=== PATIENT | female | born 1940 | race Caucasian/White ===

== ENCOUNTER 2016-10-05 19:49 | Inpatient (IN) | payer OTHER, MEDICAID ==
[~2016-10-05] VITALS: Ht 167.6 cm; Wt 70.0 kg
[~2016-10-05 19:49] MED LIST: ALBU1AER INH; CLON.1 PO; DUONSOL2 NEB; LISI-366 PO; MACR100C PO; SIMV80TA PO; SPIRCAP INH; Z.0.OXYGEN INH
[2016-10-05] MEDS ORDERED: SODIUM CHLOR 0.9% 1000 ML INJ 1,000 ML IV ONE (19:58)
[2016-10-05 19:59] VITALS: BP 140/93; PULSE 98; RESP 22; TEMP 98.4; O2SAT 93
[2016-10-05] MEDS ORDERED: NAME5TAB2 PO (20:14)
[2016-10-05] MEDS ORDERED: FURO1TAB62 PO (20:14)
[2016-10-05] MEDS ORDERED: LISI40TA PO (20:14)
[2016-10-05 20:29] LABS: APTT (PATIENT) 23.6 SEC (24.3-30.1); INTERNATIONAL NORMALIZED RATIO 1.1 RATIO; PROTHROMBIN TIME - PATIENT 12.2 SEC (9.8-11.6)
[2016-10-05 20:42] LABS: BICARBONATE 32.4 MEQ/L (21.0-32.0); MAGNESIUM 2.1 MG/DL (1.5-2.5); POTASSIUM 3.3 MEQ/L (3.5-5.1)
--- NOTE | 2016-10-05 20:53 | RADRPT ---
EXAM DATE/TIME: 10/05/2016 20:23 [facility] COMPARISON: CHEST SINGLE AP, December 31, 2013, 3:37. INDICATIONS : Shortness of breath. MEDICAL HISTORY : Hypertension. Chronic obstructive pulmonary disease. Emphysema. SURGICAL HISTORY : None. ENCOUNTER: Initial ACUITY: 2 days PAIN SCORE: 0/10 LOCATION: Bilateral chest FINDINGS: Patchy airspace consolidation seen on the right, mainly perihilar. There is bilateral hilar fullness. No pleural effusion seen. No pneumothorax. Heart size stable compared to normal limits. Thoracic aorta is tortuous. CONCLUSION: 1. Patchy air space consolidation on the right. 2. Bilateral hilar fullness. Lymph adenopathy and/or mass not excludable. Nonemergent CT of the chest , preferably with intravenous contrast, recommended. Mehran Nicolas MD on October 05, 2016 at 20:50 Board Certified Radiologist. This report was verified electronically.
--- NOTE | 2016-10-05 20:54 | PD ---
HPI Chief Complaint: Pain: Acute or Chronic Time Seen by Provider: 20:50 Travel History International Travel<30 days: No Contact w/Intl Traveler<30days: No Traveled to known affect area: No History of Present Illness HPI 75-year-old female that presents to the ED via [facility] for evaluation of fall. Patient apparently had a fall today at home. Patient apparently fell and possibly hit her head. Patient has a chronic wound to her left leg and she is complaining of this. As well as pain in the left leg. She denies any chest pain or arm pain or back pain but she still state having some shortness of breath which per patient is chronic. She does have a history of COPD. She has light to hydrocodone and morphine as well as penicillin. She states been compliant with her medications. She denies any urinary or bowel movement issues. She states that she is concerned about the swelling in her left leg. Per family she's had this swelling on and off for many years. She denies any actual trauma to this leg but per family. She had 2 falls in the past week. She does have a history of dementia so history is somewhat limited from the patient. There are U back patient was found to have hypertension as well as hyperglycemia with a sugar in the 350s. Patient denies any history of diabetes on herself and there is no medical records that she has had diabetes. She takes no diabetic medications. States having chills and sweats but no fever. PFSH Past Medical History Arthritis: Yes Asthma: Yes Blood Disorders: No Anxiety: No Depression: No Heart Rhythm Problems: No Cardiovascular Problems: Yes High Cholesterol: Yes Chemotherapy: No Chest Pain: No Congestive Heart Failure: No COPD: Yes Cerebrovascular Accident: Yes (TIA) Diabetes: No Diminished Hearing: No Deep Vein Thrombosis: Yes Endocrine: No Gastrointestinal Disorders: Yes Genitourinary: No Hypertension: Yes Immune Disorder: No Musculoskeletal: No Neurologic: Yes Psychiatric: No Reproductive: No Respiratory: Yes (COPD/EMPHYSEMA) Immunizations Current: No Radiation Therapy: No Sleep Apnea: No Thyroid Disease: No PNEUMOCCOCAL Vaccine (Year): 1 ?: Not Menopausal: Yes Tubal Ligation: Yes Past Surgical History Gynecologic Surgery: Yes (TUBES TIED) Other Surgery: Yes (LT VEIN STRIPPING 1985) Social History Alcohol Use: No Tobacco Use: No (quit 15 years ago) Substance Use: No Allergies-Medications (Allergen,Severity, Reaction): Coded Allergies: Penicillin (Verified Allergy, Intermediate, 09/10/15) Hydrocodone (Verified Adverse Reaction, Intermediate, VOMITS, 09/10/15) Morphine (Verified Adverse Reaction, Intermediate, Nausea/Vomiting, ) Reported Meds & Prescriptions Reported Meds & Active Scripts Active Reported Namenda (Memantine) 5 Mg Tab 1 Tab PO DAILY Lasix (Furosemide) 20 Mg Tab 1 Tab PO DAILY Lisinopril 40 Mg Tab 40 Mg PO DAILY Review of Systems Except as stated in HPI: all other systems reviewed are Neg Physical Exam Narrative GENERAL: SKIN: Warm and dry. HEAD: Atraumatic. Normocephalic. EYES: Pupils equal and round. No scleral icterus. No injection or drainage. ENT: No nasal bleeding or discharge. Mucous membranes pink and moist. Tongue is midline. No uvula deviation. NECK: Trachea midline. No JVD. CARDIOVASCULAR: Regular rate and rhythm. No murmurs, S3, S4. RESPIRATORY: No accessory muscle use. Clear to auscultation. Breath sounds equal bilaterally. GASTROINTESTINAL: Abdomen soft, non-tender, nondistended. Hepatic and splenic margins not palpable. MUSCULOSKELETAL: Extremities without clubbing, cyanosis, or edema. No obvious deformities. Full range of motion of the upper and lower extremities bilaterally. Patient does have 1+ pitting edema on the left foot compared to the right. Patient has 2+ pulses bilaterally. Patient does have erythema and what appears to be a chronic ulcer to appears to be healing on the medial aspect of the superior aspect of the medial malleolus. No obvious deformity other than the erythema. Warm to touch. NEUROLOGICAL: Awake and alert. No obvious cranial nerve deficits. Motor grossly within normal limits. Five out of 5 muscle strength in the arms and legs. Normal speech. PSYCHIATRIC: Appropriate mood and affect; insight and judgment normal. Data Data Last Documented VS Vital Signs Date Time Temp Pulse Resp B/P Pulse Ox O2 Delivery O2 Flow Rate FiO2 10/05/16 19:59 98.4 98 22 140/93 93 Orders Electrocardiogram (10/05/16 19:56) Complete Blood Count With Diff (10/05/16 19:56) Basic Metabolic Panel (Bmp) (10/05/16 19:56) Troponin I (10/05/16 19:56) Prothrombin Time / Inr (Pt) (10/05/16 19:56) Act Partial Throm Time (Ptt) (10/05/16 19:56) Blood Culture (10/05/16 19:56) Urinalysis - C+S If Indicated (10/05/16 19:56) Magnesium (Mg) (10/05/16 19:56) Chest, Single Ap (10/05/16 19:56) Iv Access Insert/Monitor (10/05/16 19:56) Ecg Monitoring (10/05/16 19:56) Oximetry (10/05/16 19:56) Lactic Acid (10/05/16 19:56) Foot, Complete ([id number]) (10/05/16 ) Ankle, Complete ([id number]) (10/05/16 ) Cath For Specimen (10/05/16 19:58) Sodium Chlor 0.9% 1000 Ml Inj (Ns 1000 M (10/05/16 19:58) Us Leg Venous Doppler (10/05/16 ) Ct Brain W/O Iv Contrast(Rout) (10/05/16 ) Ct Thorax/ Chest W Iv Contrast (10/05/16 ) Urine Culture (10/05/16 21:30) Iohexol 350 Inj (Omnipaque 350 Inj) (10/05/16 22:15) Ceftriaxone Inj (Rocephin Inj) (10/05/16 22:15) Azithromycin Inj (Zithromax Inj) (10/05/16 22:15) Labs Laboratory Tests Test 10/05/16 10/05/16 20:05 21:30 White Blood Count 10.8 TH/MM3 Red Blood Count 4.33 MIL/MM3 Hemoglobin 13.2 GM/DL Hematocrit 39.0 % Mean Corpuscular Volume 90.0 FL Mean Corpuscular Hemoglobin 30.5 PG Mean Corpuscular Hemoglobin 33.9 % Concent Red Cell Distribution Width 14.2 % Platelet Count 125 TH/MM3 Mean Platelet Volume 8.4 FL Neutrophils (%) (Auto) 77.1 % Lymphocytes (%) (Auto) 14.8 % Monocytes (%) (Auto) 7.8 % Eosinophils (%) (Auto) 0.0 % Basophils (%) (Auto) 0.3 % Neutrophils # (Auto) 8.3 TH/MM3 Lymphocytes # (Auto) 1.6 TH/MM3 Monocytes # (Auto) 0.8 TH/MM3 Eosinophils # (Auto) 0.0 TH/MM3 Basophils # (Auto) 0.0 TH/MM3 CBC Comment DIFF FINAL Differential Comment Prothrombin Time 12.2 SEC Prothromb Time International 1.1 RATIO Ratio Activated Partial 23.6 SEC Thromboplast Time Sodium Level 142 MEQ/L Potassium Level 3.3 MEQ/L Chloride Level 104 MEQ/L Carbon Dioxide Level 32.4 MEQ/L Anion Gap 6 MEQ/L Blood Urea Nitrogen 24 MG/DL Creatinine 0.88 MG/DL Estimat Glomerular Filtration 63 ML/MIN Rate Random Glucose 150 MG/DL Lactic Acid Level 2.1 mmol/L Calcium Level 7.9 MG/DL Magnesium Level 2.1 MG/DL Troponin I 0.02 NG/ML Urine Color YELLOW Urine Turbidity HAZY Urine pH 7.0 Urine Specific [place] 1.018 Urine Protein TRACE mg/dL Urine Glucose (UA) 300 mg/dL Urine Ketones NEG mg/dL Urine Occult Blood TRACE Urine Nitrite NEG Urine Bilirubin NEG Urine Urobilinogen 8.0 MG/DL Urine Leukocyte Esterase LARGE Urine RBC 3 /hpf Urine WBC 102 /hpf Urine Bacteria OCC /hpf Microscopic Urinalysis Comment CULTURE INDICATED MDM Medical Decision Making Medical Screen Exam Complete: Yes Emergency Medical Condition: Yes Medical Record Reviewed: Yes Interpretation(s) CBC & BMP Diagram 10/05/16 20:05 lactic 2.1 Injudicious sinus rhythm with no sign of acute ischemia or arrhythmia with no changes from prior. Read by me and attending. Troponin negative. Last Impressions Chest X-Ray 10/05/161955 Signed Impressions: Service Date/Time: September 20:23 - CONCLUSION: 1. Patchy air space consolidation on the right. 2. Bilateral hilar fullness. Lymph adenopathy and/or mass not excludable. Nonemergent CT of the chest, preferably with intravenous contrast, recommended. Mehran Nicolas MD Lower Extremity Ultrasound 10/05/16 0000 Signed Impressions: Service Date/Time: September 20:58 - CONCLUSION: No DVT of the left lower extremity. Mehran Nicolas MD Foot X-Ray 10/05/16 0000 Signed Impressions: Service Date/Time: September 20:26 - CONCLUSION: Soft tissue swelling without perceptible fracture. There is osteopenia and second through fifth hammertoe. Mehran Nicolas MD Ankle X-Ray 10/05/16 0000 Signed Impressions: Service Date/Time: September 20:29 - CONCLUSION: 1. Osteopenia without fracture or subluxation. 2. Diffuse subcutaneous edema. Mehran Nicolas MD UA shows signs of UTI Differential Diagnosis Sepsis versus cellulitis versus hypertension versus hyperglycemia versus COPD versus multiple falls versus head injury versus COPD versus dyspnea Narrative Course 75-year-old female that presents to the ED for evaluation of fall and left leg pain and swelling. Patient was properly examined and was found to have signs and symptoms of unclear etiology. Labs and imaging ordered. Patient was found to be hyperglycemic by EVAC. No history of diabetes. She does appear to have possible cellulitis of the left leg but unsure as patient is somewhat limited with her history. Recommendations for labs and imaging. Patient is agreeable with this. Labs and imaging showed elevated lactic acid, mass on the right lung , UTI. Otherwise unremarkable. Case was discussed in my attending who recommends admission secondary to the upper mental status from the patient as well as the significant infections that she already has. Patient was started on IV azithromycin and ceftriaxone as well as fluids. [facility] Procedures EKG Prior to Arrival: No Sepsis Criteria SIRS Criteria (2 or more): RR > 20 or PaCO2 < 32 Diagnosis Primary Impression: Cellulitis Qualified Code: L03.116 - Cellulitis of left lower extremity Additional Impressions: UTI (urinary tract infection) Qualified Code: N30.00 - Acute cystitis without hematuria Altered mental status Qualified Code: R41.82 - Altered mental status, unspecified altered mental status type COPD (chronic obstructive pulmonary disease) Qualified Code: J42 - Chronic bronchitis, unspecified chronic bronchitis type Admitting Information Admitting Physician Requests: Henrique Davila Oct 05, 2016 20:54
[2016-10-05 20:55] LABS: AUTOMATED NEUTROPHIL # 8.3 TH/MM3 (1.8-7.7); BASOPHIL % 0.3 % (0.0-2.0); HEMO FLAGS DIFF FINAL; LYMPH % 14.8 % (9.0-44.0); LYMPHOCYTE # 1.6 TH/MM3 (1.0-4.8); MEAN CORPUSCULAR HEMOGLOBIN 30.5 PG (27.0-34.0); MEAN CORPUSCULAR HGB CONC 33.9 % (32.0-36.0); MONO % 7.8 % (0.0-8.0); NEUT % 77.1 % (16.0-70.0); PLATELET COUNT 125 TH/MM3 (150-450); RED BLOOD COUNT 4.33 MIL/MM3 (4.00-5.30); RED CELL DISTRIBUTION WIDTH 14.2 % (11.6-17.2); WHITE BLOOD COUNT 10.8 TH/MM3 (4.0-11.0)
--- NOTE | 2016-10-05 20:56 | RADRPT ---
EXAM DATE/TIME: 10/05/2016 20:26 [facility] COMPARISON: No previous studies available for comparison. INDICATIONS : Left foot pain, fall. MEDICAL HISTORY : None. SURGICAL HISTORY : None. ENCOUNTER: Initial ACUITY: 2 days PAIN SCORE: 4/10 LOCATION: Left lateral foot FINDINGS: No fracture or acute subluxation demonstrated. Bones are osteopenic. There is second through fifth duvall mmertoe. There is soft tissue swelling dorsally over the mid foot and proximal forefoot. CONCLUSION: Soft tissue swelling without perceptible fracture. There is osteopenia and second through fifth hamme rtoe. Mehran Nicolas MD on October 05, 2016 at 20:54 Board Certified Radiologist. This report was verified electronically.
--- NOTE | 2016-10-05 20:58 | RADRPT ---
EXAM DATE/TIME: 10/05/2016 20:29 [facility] COMPARISON: No previous studies available for comparison. INDICATIONS : Left ankle pain, fall. MEDICAL HISTORY : None. SURGICAL HISTORY : None. ENCOUNTER: Initial ACUITY: 2 days PAIN SCORE: 8/10 LOCATION: Left lateral ankle FINDINGS: There is fairly generalized subcutaneous edema, perhaps slightly more pronounced medially. Vascular c alcifications are present suggesting chronic venous stasis. No radiopaque foreign body. Bones of the left ankle are osteopenic. No fracture or subluxation demonstrated. No significant arthr opathy seen. CONCLUSION: 1. Osteopenia without fracture or subluxation. 2. Diffuse subcutaneous edema. Mehran Nicolas MD on October 05, 2016 at 20:56 Board Certified Radiologist. This report was verified electronically.
--- NOTE | 2016-10-05 21:40 | RADRPT ---
EXAM DATE/TIME: 10/05/2016 20:58 [facility] COMPARISON: US LEG LEFT VENOUS DOPPLER, April 15, 2010, 13:41. INDICATIONS : Left lower extremity swelling. MEDICAL HISTORY : Hypercholesterolemia. Hypertension. Emphysema. COPD. DVT. TIA. Asthma. Arthritis. SURGICAL HISTORY : Tubal ligation. Left vein stripping. ENCOUNTER: Initial ACUITY: 2 day PAIN SCORE: 0/10 LOCATION: Left leg. TECHNIQUE: Venous ultrasound of the leg was performed from the inguinal ligament to the proximal calf. Real-sujey e, color Doppler and spectral tracing, compression and augmentation techniques were used. FINDINGS: There is normal compressibility of the deep venous system from the inguinal region to the proximal ca lf. No echogenic clot is seen in the lumen of the common femoral, femoral, popliteal, and posterior tibial veins. There is a normal response of the venous system to proximal and distal augmentation an d respiration. CONCLUSION: No DVT of the left lower extremity. Mehran Nicolas MD on October 05, 2016 at 21:38 Board Certified Radiologist. This report was verified electronically.
[2016-10-05 22:03] LABS: BACTERIA, URINE OCC /hpf; BLOOD, URINE TRACE (NEG); COMMENT (UR) CULTURE INDICATED; CULTURE IF INDICATED CULTURE INDICATED; GLUCOSE,URINE 300 mg/dL (NEG); KETONE, URINE NEG (NEG); NITRITE,URINE NEG (NEG); URINE COLOR YELLOW (YELLW/STRAW)
[2016-10-05] MEDS ORDERED: IOHEXOL 350 MG/ML 10 ML VIAL (for RAD DIAG) IV ONE (22:15)
[2016-10-05] MEDS ORDERED: AZITHROMYCIN INJ 500 MG in SODIUM CHLOR 0.9% 250 ML INJ 250 ML IV ONE (22:15)
[2016-10-05] MEDS ORDERED: cefTRIAXone INJ 1,000 MG in SODIUM CHLORIDE 0.9% INJ 100 ML IV ONE (22:15)
--- NOTE | 2016-10-05 22:28 | RADRPT ---
EXAM DATE/TIME: 10/05/2016 21:57 [facility] COMPARISON: No previous studies available for comparison. INDICATIONS : Trauma, fall. RADIATION DOSE: 69.15 CTDIvol (mGy) MEDICAL HISTORY : Cerebrovascular disease. Hypertension. SURGICAL HISTORY : None. ENCOUNTER: Initial ACUITY: 1 day PAIN SCALE: 0/10 LOCATION: cranial TECHNIQUE: Multiple contiguous axial images were obtained of the head. Using automated exposure control and adj ustment of the mA and/or kV according to patient size, radiation dose was kept as low as reasonably a chievable to obtain optimal diagnostic quality images. FINDINGS: CEREBRUM: The ventricles are normal for age. No evidence of midline shift, mass lesion, hemorrhage or acute in farction. No extra-axial fluid collections are seen. There is chronic low-attenuation in the periven tricular white matter. POSTERIOR FOSSA: The cerebellum and brainstem are intact. The 4th ventricle is midline. The cerebellopontine angle i s unremarkable. EXTRACRANIAL: The visualized portion of the orbits is intact. SKULL: The calvaria is intact. No evidence of skull fracture. CONCLUSION: No bleed or other acute intracranial abnormality. Chronic white matter changes. Mehran Nicolas MD on October 05, 2016 at 22:26 Board Certified Radiologist. This report was verified electronically.
--- NOTE | 2016-10-05 22:35 | RADRPT ---
EXAM DATE/TIME: 10/05/2016 22:04 [facility] COMPARISON: CHEST SINGLE AP, October 05, 2016, 20:23. INDICATIONS : Abnormal chest radiograph. Evaluate mass IV CONTRAST: 55 cc Omnipaque 350 (iohexol) IV RADIATION DOSE: 5.28 CTDIvol (mGy) MEDICAL HISTORY : Emphysema. Hypertension. Chronic obstructive pulmonary disease. SURGICAL HISTORY : None. ENCOUNTER: Initial ACUITY: 1 day PAIN SCALE: 0/10 LOCATION: chest TECHNIQUE: Volumetric scanning of the chest was performed. Using automated exposure control and adjustment of t he mA and/or kV according to patient size, radiation dose was kept as low as reasonably achievable to obtain optimal diagnostic quality images. FINDINGS: There areas of non-masslike parenchymal consolidation focally in both infrahilar regions. These are p resumably infectious or inflammatory. I don't see an endobronchial lesion. An 11 mm nodule is seen in the right lower lobe, series 3 a 3 image 25. There is moderate to severe emphysema. Mild atelectasis and/or scarring seen in the lung bases. No pleural effusion. No pneumothorax. No mediastinal, hilar or axillary lymphadenopathy. Heart size within normal limits. There is cor onary artery calcification noted. The upper abdomen is only partly included on this study. There is an ill-defined low-density les ion in the left hepatic lobe and measures at least 3.3 x 4.0 cm in size.CONCLUSION: 1. Localized areas of paramediastinal consolidation of the middle lobe on the right and lingula on th e left most likely infectious or inflammatory versus atelectasis. I don't see any measurable mass in either of these areas but there is an 11 mm nodule in the right upper lobe. Followup noncontrast ches t CT recommended in no longer than 3 months. 2. There is an indeterminate low density mass partially seen in the liver. It is not convincing for a cyst or other benign structure. A nonemergent MRI of the abdomen with and without contrast is recomm ended. 3. Emphysema and coronary artery calcification. Mehran Nicolas MD on October 05, 2016 at 22:27 Board Certified Radiologist. This report was verified electronically.
[2016-10-05 22:58] VITALS: BP 170/79; PULSE 94; RESP 18; O2SAT 94
[2016-10-05] MEDS ORDERED: ONDANSETRON HCL 4 MG/2 ML VIAL IVP PRN (23:15)
[2016-10-05] MEDS ORDERED: NALOXONE HCL 0.4 MG/ML AMP IV PRN (23:15)
[2016-10-05] MEDS ORDERED: SODIUM CHLORIDE 0.9% FLUSH 5 ML FLUSH FLUSH PRN (23:15)
[2016-10-05] MEDS: HEPARIN SODIUM - SQ 10,000 UNITS/ML VIAL SQ SCH (23:16)
[2016-10-06] VITALS (9 sets, daily range): BP systolic 125–158; BP diastolic 63–76; PULSE 69–105; RESP 16–22; TEMP 97.9–99.2; O2SAT 93–98
[2016-10-06] MEDS: SODIUM CHLOR 0.9% 1000 ML INJ 1,000 ML IV SCH ×2 (00:13→22:07)
[2016-10-06] MEDS: RESP: ALBUTEROL 2.5 MG/IPRATROPIUM 0.5 MG NEB (PRN) NEB ×2 (03:39→10:50)
[2016-10-06 03:50] LABS: AUTOMATED NEUTROPHIL # 6.7 TH/MM3 (1.8-7.7); BASOPHIL % 0.1 % (0.0-2.0); HEMO FLAGS DIFF FINAL; LYMPH % 22.4 % (9.0-44.0); LYMPHOCYTE # 2.2 TH/MM3 (1.0-4.8); MEAN CELL VOLUME 89.9 FL (80.0-100.0); MEAN CORPUSCULAR HEMOGLOBIN 30.2 PG (27.0-34.0); MEAN CORPUSCULAR HGB CONC 33.6 % (32.0-36.0); MONO % 8.2 % (0.0-8.0); NEUT % 69.3 % (16.0-70.0); PLATELET COUNT 118 TH/MM3 (150-450); RED BLOOD COUNT 4.11 MIL/MM3 (4.00-5.30); RED CELL DISTRIBUTION WIDTH 14.4 % (11.6-17.2); WHITE BLOOD COUNT 9.7 TH/MM3 (4.0-11.0)
[2016-10-06 04:13] LABS: BICARBONATE 31.7 MEQ/L (21.0-32.0); POTASSIUM 3.7 MEQ/L (3.5-5.1)
[2016-10-06] MEDS ORDERED: INFLUENZA VIRUS VACCINE (QUADRIVALENT) 0.5 ML SYR IM ONE (09:00)
[2016-10-06] MEDS ORDERED: PNEUMOCOCCAL POLYVALENT INJ 25 MCG/0.5 ML SYR IM ONE (09:00)
[2016-10-06] MEDS: SODIUM CHLORIDE 0.9% FLUSH 5 ML FLUSH FLUSH SCH ×2 (09:00→21:00)
[2016-10-06] MEDS ORDERED: hydrALAZINE HCL 20 MG/ML VIAL IV PRN (10:30)
[2016-10-06] MEDS ORDERED: MAGNESIUM HYDROXIDE SUSP 30 ML CUP PO PRN (10:30)
[2016-10-06] MEDS ORDERED: cloNIDine HCL 0.1 MG TAB PO PRN (10:30)
[2016-10-06] MEDS ORDERED: DOCUSATE SODIUM 100 MG CAP PO PRN (10:30)
[2016-10-06] MEDS ORDERED: ALUMINUM/MAGNESIUM/SIMETH 30 ML CUP PO PRN (10:30)
[2016-10-06] MEDS ORDERED: CALCIUM CARBONATE 500 MG CHEWABLE TAB CHEW PRN (10:30)
[2016-10-06] MEDS ORDERED: ENALAPRILAT 1.25 MG/ML VIAL IV PRN (10:30)
[2016-10-06] MEDS ORDERED: DEXTROSE 50% IN WATER 50 ML VIAL(D50) IV PUSH PRN (10:30)
[2016-10-06] MEDS ORDERED: GLUCAGON 1 MG/ML VIAL OTHER PRN (10:30)
[2016-10-06] MEDS ORDERED: DOCUSATE SODIUM 50 MG/SENNA 8.6 MG TAB PO PRN (10:30)
[2016-10-06] MEDS: POTASSIUM CHLORIDE 20 MEQ CONTROLLED RELEASE TAB PO SCH (10:55)
[2016-10-06] MEDS: LISINOPRIL 20 MG TAB PO SCH (10:55)
[2016-10-06] MEDS: FUROSEMIDE 20 MG TAB PO SCH (10:55)
[2016-10-06] MEDS: HEPARIN SODIUM - SQ 10,000 UNITS/ML VIAL SQ SCH ×2 (10:56→22:10)
[2016-10-06] MEDS: INSULIN ASPART SUPPLEMENTAL SCALE SQ SCH ×3 (10:56→22:08)
--- NOTE | 2016-10-06 11:34 | HHI.HP ---
[facility] Rei Alfredo M.D. Admission Diagnosis altered mental status, cellulitis, UTI, lung mass Diagnoses: Chief Complaint: fall, AMS, leg pain Travel History International Travel<30 Days: No Contact w/Intl Traveler <30 Da: No Traveled to Known Affected Are: No Sepsis Criteria SIRS Criteria (2 or more): Heart rate over 90, RR > 20 or PaCO2 < 32 Sepsis Criteria (SIRS+source): Infect source susp/known Severe Sepsis (+one): Lactate >2 Criteria Outcome: Meets severe sepsis criteria History of Present Illness 75-year-old female with history of Dementia, HTN, HLD, TIA, DVT, COPD, arthritis , presents after a fall at home. Patient reports she lives with a roommate, was using her cane at home but states she "didn't have the right position" and just fell to the ground. She reports 2 falls in the past week. She denies any injury or loss of consciousness, although her left leg now feels "sore". She has a chronic wound from a few years ago at the left medial lower extremity, with some surrounding erythema but no drainage. She has been taking ibuprofen as needed for the pain. Upon arrival to the ED, CXR showed possible pneumonia. The patient reports chronic shortness of breath at baseline, improves after breathing treatments, and with occasional cough productive of yellow sputum. Denies fevers or chills. Denies chest pains. Urinalysis also with evidence of UTI. Patient denies dysuria, abdominal/flank pain. The patient has no other medical complaints at this time. Review of Systems Constitutional: DENIES: Diaphoretic episodes, Fever, Chills, Dizziness Endocrine: DENIES: Polydipsia, Polyuria, Polyphagia Eyes: DENIES: Blurred vision, Eye pain, Double Vision Ears, nose, mouth, throat: COMPLAINS OF: Running Nose, DENIES: Throat pain, Ear Pain, Odynophagia Respiratory: COMPLAINS OF: Cough, Wheezing, Sputum production, Shortness of breath Cardiovascular: COMPLAINS OF: Lower Extremity Edema, DENIES: Chest pain, Palpitations, Syncope Gastrointestinal: DENIES: Abdominal pain, Constipation, Diarrhea, Nausea, Vomiting Genitourinary: DENIES: Urinary incontinence, Urgency, Dysuria Musculoskeletal: DENIES: Back pain, Neck pain Integumentary: DENIES: Pruritus, Rash Hematologic/lymphatic: DENIES: Bruising, Lymphadenopathy Immunologic/allergic: DENIES: Eczema, Urticaria Neurologic: DENIES: Abnormal gait, Headache, Localized weakness, Paresthesias Psychiatric: DENIES: Anxiety, Depression Past Family Social History Past Medical History Dementia HTN HLD DVT TIA COPD arthritis Past Surgical History Vein stripping Tubal ligation Reported Medications Namenda (Memantine) 5 Mg Tab 1 Tab PO DAILY Lasix (Furosemide) 20 Mg Tab 1 Tab PO DAILY Lisinopril 40 Mg Tab 40 Mg PO DAILY Allergies: Coded Allergies: Morphine (Verified Adverse Reaction, Intermediate, Nausea/Vomiting, ) Active Ordered Medications Current Medications Medications (Trade) Dose Ordered Sig/Hung Route Start Time Stop Time Status Last Admin (NS 1000 ml Inj) 1,000 ml @ 50 mls/hr Q20H IV 10/05/16 23:03 10/06/16 00:13 (NS Flush) 2 ml UNSCH PRN FLUSH 10/05/16 23:15 (NS Flush) 2 ml BID FLUSH 10/06/16 09:00 10/06/16 09:00 (Tylenol) 650 mg Q4H PRN PO 10/05/16 23:15 (Zofran Inj) 4 mg Q6H PRN IVP 10/05/16 23:15 (Heparin Inj) 5,000 units Q12H SQ 10/05/16 23:15 10/06/16 10:56 Naloxone HCl 0.4 mg 0.4 mg UNSCH PRN IV 10/05/16 23:15 Ceftriaxone Sodium 1000 mg/ Sodium Chloride 100 ml @ 200 mls/hr Q24H IV 10/06/16 22:00 (Zithromax Inj/ NS 250 ml Inj) 250 ml @ 250 mls/hr Q24H IV 10/06/16 23:00 (Colace) 100 mg BID PRN PO 10/06/16 10:30 (Araceli-Colace) 1 tab BID PRN PO 10/06/16 10:30 (Milk Of Magnesia Liq) 30 ml DAILY PRN PO 10/06/16 10:30 (Mag-Al Plus Susp Liq) 30 ml Q6H PRN PO 10/06/16 10:30 (Tums Chew) 1,000 mg TID PRN CHEW 10/06/16 10:30 (D50w (Vial) Inj) 25 ml UNSCH PRN IV PUSH 10/06/16 10:30 (Glucagon Inj) 1 mg UNSCH PRN OTHER 10/06/16 10:30 (Lasix) 20 mg DAILY PO 10/06/16 10:30 10/06/16 10:55 (Prinivil) 40 mg DAILY PO 10/06/16 10:30 10/06/16 10:55 (Namenda) 5 mg DAILY PO 10/07/16 09:00 (Vasotec Inj) 1.25 mg Q6H PRN IV 10/06/16 10:30 (Apresoline Inj) 10 mg Q6H PRN IV 10/06/16 10:30 (Catapres) 0.1 mg Q6H PRN PO 10/06/16 10:30 (KCl) 20 meq DAILY PO 10/06/16 10:30 10/06/16 10:55 Family History Father with stomach cancer, Social History Denies tobacco, alcohol, or illicit drug use. Quit smoking tobacco 15+ years ago. Lives with a roommate Uses a cane for ambulation. Physical Exam Vital Signs Vital Signs Date Time Temp Pulse Resp B/P Pulse Ox O2 Delivery O2 Flow Rate FiO2 10/06/16 07:57 99.2 69 141/69 98 10/06/16 03:34 97.9 71 19 152/76 97 10/06/16 02:12 96 Nasal Cannula 2.00 10/06/16 02:09 79 18 134/74 96 Nasal Cannula 3 10/06/16 00:13 83 16 125/67 93 Nasal Cannula 3 10/05/16 22:58 94 18 170/79 94 Nasal Cannula 3 10/05/16 19:59 98.4 98 22 140/93 93 Physical Exam GENERAL: Well-nourished, well-developed elderly female patient, in no apparent distress. SKIN: No rashes, ecchymoses or lesions. Cool and dry. HEAD: Atraumatic. Normocephalic. No temporal or scalp tenderness. EYES: Pupils equal round and reactive. No scleral icterus. No injection or drainage. ENT: Nose without bleeding, purulent drainage or septal hematoma. Throat without erythema, tonsillar hypertrophy or exudate. Uvula midline. Airway patent. NECK: Trachea midline. Supple, nontender. CARDIOVASCULAR: Regular rate and rhythm without murmurs, gallops, or rubs. RESPIRATORY: Decreased breath sounds, otherwise clear to auscultation. Breath sounds equal bilaterally. No wheezes, rales, or rhonchi. GASTROINTESTINAL: Abdomen soft, non-tender, nondistended. Normoactive bowel sounds. MUSCULOSKELETAL: Extremities without clubbing, cyanosis, or edema. Distal medial left lower extremity with 3cm healing wound. 2+ bilateral lower extremity edema. No CVA tenderness. NEUROLOGICAL: Awake and alert. Cranial nerves II through XII intact. Motor and sensory grossly within normal limits. Moves all extremities spontaneously. Normal speech. Laboratory Laboratory Tests Test 10/05/16 10/05/16 10/06/16 20:05 21:30 03:23 White Blood Count 10.8 9.7 Red Blood Count 4.33 4.11 Hemoglobin 13.2 12.4 Hematocrit 39.0 37.0 Mean Corpuscular Volume 90.0 89.9 Mean Corpuscular Hemoglobin 30.5 30.2 Mean Corpuscular Hemoglobin 33.9 33.6 Concent Red Cell Distribution Width 14.2 14.4 Platelet Count 125 118 Mean Platelet Volume 8.4 8.4 Neutrophils (%) (Auto) 77.1 69.3 Lymphocytes (%) (Auto) 14.8 22.4 Monocytes (%) (Auto) 7.8 8.2 Eosinophils (%) (Auto) 0.0 0.0 Basophils (%) (Auto) 0.3 0.1 Neutrophils # (Auto) 8.3 6.7 Lymphocytes # (Auto) 1.6 2.2 Monocytes # (Auto) 0.8 0.8 Eosinophils # (Auto) 0.0 0.0 Basophils # (Auto) 0.0 0.0 CBC Comment DIFF FINAL DIFF FINAL Differential Comment Prothrombin Time 12.2 Prothromb Time International 1.1 Ratio Activated Partial 23.6 Thromboplast Time Sodium Level 142 145 Potassium Level 3.3 3.7 Chloride Level 104 109 Carbon Dioxide Level 32.4 31.7 Anion Gap 6 4 Blood Urea Nitrogen 24 17 Creatinine 0.88 0.64 Estimat Glomerular Filtration 63 91 Rate Random Glucose 150 126 Lactic Acid Level 2.1 Calcium Level 7.9 8.0 Magnesium Level 2.1 Troponin I 0.02 Urine Color YELLOW Urine Turbidity HAZY Urine pH 7.0 Urine Specific Remus 1.018 Urine Protein TRACE Urine Glucose (UA) 300 Urine Ketones NEG Urine Occult Blood TRACE Urine Nitrite NEG Urine Bilirubin NEG Urine Urobilinogen 8.0 Urine Leukocyte Esterase LARGE Urine RBC 3 Urine WBC 102 Urine Bacteria OCC Microscopic Urinalysis Comment CULTURE INDICATED Date/Time Procedure Status Source Growth 10/05/16 21:30 Urine Culture Received Urine Clean Catch Pending 10/05/16 20:05 Aerobic Blood Culture - Preliminary Resulted Blood Peripheral NO GROWTH IN 1 DAY 10/05/16 20:05 Anaerobic Blood Culture - Preliminary Resulted Blood Peripheral NO GROWTH IN 1 DAY Result Diagram: 10/06/1632210/06/16322 Imaging Last Impressions Chest X-Ray 10/05/161955 Signed Impressions: Service Date/Time: September 20:23 - CONCLUSION: 1. Patchy air space consolidation on the right. 2. Bilateral hilar fullness. Lymph adenopathy and/or mass not excludable. Nonemergent CT of the chest, preferably with intravenous contrast, recommended. Mehran Nicolas MD Lower Extremity Ultrasound 10/05/16 0000 Signed Impressions: Service Date/Time: September 20:58 - CONCLUSION: No DVT of the left lower extremity. Mehran Nicolas MD Head CT 10/05/16 0000 Signed Impressions: Service Date/Time: September 21:57 - CONCLUSION: No bleed or other acute intracranial abnormality. Chronic white matter changes. Mehran Nicolas MD Foot X-Ray 10/05/16 0000 Signed Impressions: Service Date/Time: September 20:26 - CONCLUSION: Soft tissue swelling without perceptible fracture. There is osteopenia and second through fifth hammertoe. Mehran Nicolas MD Chest CT 10/05/16 0000 Signed Impressions: Service Date/Time: September 22:04 - CONCLUSION: 1. Localized areas of paramediastinal consolidation of the middle lobe on the right and lingula on the left most likely infectious or inflammatory versus atelectasis. I don't see any measurable mass in either of these areas but there is an 11 mm nodule in the right upper lobe. Followup noncontrast chest CT recommended in no longer than 3 months. 2. There is an indeterminate low density mass partially seen in the liver. It is not convincing for a cyst or other benign structure. A nonemergent MRI of the abdomen with and without contrast is recommended. 3. Emphysema and coronary artery calcification. Mehran Nicolas MD Ankle X-Ray 10/05/16 0000 Signed Impressions: Service Date/Time: , October 05, 2016 20:29 - CONCLUSION: 1. Osteopenia without fracture or subluxation. 2. Diffuse subcutaneous edema. Mehran Nicolas MD Assessment and Plan Problem List: (1) Severe sepsis ICD Code: A41.9 Status: Acute (2) Community acquired pneumonia ICD Code: J18.9 Status: Acute (3) UTI (urinary tract infection) ICD Code: N39.0 Status: Acute (4) COPD (chronic obstructive pulmonary disease) ICD Code: J44.9 Status: Chronic (5) HTN (hypertension) ICD Code: I10 Status: Chronic Assessment and Plan 75-year-old female with history of Dementia, HTN, HLD, TIA, DVT, COPD, arthritis , presents after a fall at home. Severe Sepsis: tachycardic, tachypneic, lactic acid 2.1 upon arrival. Souce-PNA and UTI. Afebrile, no leukocytosis. Blood cultures with no growth x1day. On IV Abx with Rocephin/Azithro. Continue gentle IVF. Community Acquired Pneumonia: CXR images reviewed by me, shows patchy consolidation at right lung. Chest CT showed localized areas of paramediastinal consolidation of RML and lingula on the left, most likely infectious vs inflammatory. Check urine legionella/pneumococcal antigen and sputum culture. Started on IV Rocephin/Azithro. Mucinex bid. UTI: UA with evidence of UTI. On IV Rocephin as above. Monitor urine culture. Fall: suspect chronic deconditioning worsened by infection as above. Head CT images reviewed by me, no acute findings. Consult PT. Fall precautions. LLE Wound and BLE Edema: chronic. Doppler U/S negative. LLE foot and ankle xray reviewed, showed osteopenia without fracture/subluxation; diffuse subcutaneous edema. Continue patient's Lasix 20mg daily with KCl replacement. COPD: chronic, continue duonebs q12h scheduled and q6h prn. Dementia: Chronic, continue patient's Namenda. HTN/HLD: Chronic, continue patient's lisinopril. Monitor BP, adjust antihypertensives as needed. Clonidine prn. RUL nodule: incidental finding, discussed with the patient, needs outpatient repeat Chest CT in 3 months. Liver Mass: incidental finding on imaging, discussed with the patient, needs nonemergent outpatient MRI. Coronary Calcifications: seen on chest CT, patient informed of the findings. Patient denies recent chest pains. EKG reviewed by me, showed RBBB, no changes when compared to EKG in 2015. Start on aspirin. DVT Prophylaxis: heparin Written by Maylin Jaramillo, acting as scribe for Dr. Pabon on 10/06/16 at 11: 27. The documentation accurately reflects the work performed [id number] by me on at 1127 Code Status Full Code Discussed Condition With Patient, RN Physician Certification 2 Midnight Certification Type: Admission for Inpatient Services Order for Inpatient Services The services are ordered in accordance with Medicare regulations or non- Medicare payer requirements, as applicable. In the case of services not specified as inpatient-only, they are appropriately provided as inpatient services in accordance with the 2-midnight benchmark. Estimated LOS (days): 3 days is the estimated time the patient will need to remain in the hospital, assuming treatment plan goals are met and no additional complications. Post-Hospital Plan: Not yet determined Problem Qualifiers (1) UTI (urinary tract infection): Qualified Code: N30.00 - Acute cystitis without hematuria (2) COPD (chronic obstructive pulmonary disease): Qualified Code: J42 - Chronic bronchitis, unspecified chronic bronchitis type Maylin Jaramillo PA-C Oct 06, 2016 11:34 Maxim Pabon MD Oct 06, 2016 17:03
[2016-10-06 15:47] LABS: HEMOGLOBIN A1a 0.9 %; HEMOGLOBIN A1b 0.9 %; HEMOGLOBIN Ao 85.4 %; HEMOGLOBIN F 0.7 %; HEMOGLOBIN P3 5.5 %
[2016-10-06] MEDS: RESP: ALBUTEROL 2.5 MG/IPRATROPIUM 0.5 MG NEB (SCH) NEB (19:27)
[2016-10-06] MEDS: cefTRIAXone INJ 1,000 MG in SODIUM CHLORIDE 0.9% INJ 100 ML IV SCH (22:08)
[2016-10-06] MEDS: guaiFENesin E.R. 600 MG TAB PO SCH (22:09)
--- NOTE | 2016-10-06 22:47 | EKG ---
Date Performed: 10/05/2016 Time Performed: 20:21:15 PTAGE: 75 years EKG: Sinus rhythm WITH SINUS ARRHYTHMIA POSSIBLE LEFT ATRIAL ENLARGEMENT INDETERMINATE AXIS RIGHT BUNDLE BRANCH BLOCK MODERATE T-WAVE ABNORMALITY, CONSIDER LATERAL ISCHEMIA MODERATE T-WAVE ABNORMALITY, CONSIDER INFERIOR ISCHEMIA ABNORMAL ECG PREVIOUS TRACING : 09/29/2014 10.12 DOCTOR: Belinda Abarca Interpretating Date/Time 10/06/2016 22:43:50
[2016-10-06] MEDS: AZITHROMYCIN INJ 500 MG in SODIUM CHLOR 0.9% 250 ML INJ 250 ML IV SCH (23:58)
[2016-10-07] VITALS (9 sets, daily range): BP systolic 126–175; BP diastolic 65–89; PULSE 70–90; RESP 19–21; TEMP 96–98.1; O2SAT 92–96
[2016-10-07] MEDS: RESP: ALBUTEROL 2.5 MG/IPRATROPIUM 0.5 MG NEB (SCH) NEB ×2 (05:05→20:13)
[2016-10-07] MEDS: INSULIN ASPART SUPPLEMENTAL SCALE SQ SCH ×4 (06:19→20:21)
[2016-10-07 06:55] LABS: BICARBONATE 29.5 MEQ/L (21.0-32.0); MAGNESIUM 2.1 MG/DL (1.5-2.5); POTASSIUM 3.8 MEQ/L (3.5-5.1)
[2016-10-07] MEDS ORDERED: ASPIRIN EC 81 MG TABEC PO SCH (09:00)
[2016-10-07] MEDS: RESP: ALBUTEROL 2.5 MG/IPRATROPIUM 0.5 MG NEB (PRN) NEB ×2 (09:19→12:08)
[2016-10-07] MEDS: guaiFENesin E.R. 600 MG TAB PO SCH ×2 (09:41→20:20)
[2016-10-07] MEDS: MEMANTINE HCL 5 MG TAB PO SCH (09:41)
[2016-10-07] MEDS: ASPIRIN EC 81 MG TABEC PO SCH (09:41)
[2016-10-07] MEDS: SODIUM CHLORIDE 0.9% FLUSH 5 ML FLUSH FLUSH SCH ×2 (09:41→20:20)
[2016-10-07] MEDS: LISINOPRIL 20 MG TAB PO SCH (09:41)
[2016-10-07] MEDS: FUROSEMIDE 20 MG TAB PO SCH (09:41)
[2016-10-07] MEDS: POTASSIUM CHLORIDE 20 MEQ CONTROLLED RELEASE TAB PO SCH (09:41)
--- NOTE | 2016-10-07 10:06 | HHI.PR ---
Subjective Remarks Follow-up for fall, pneumonia, UTI. The patient's been tolerating oral intake. She is a bit short of breath currently after receiving a bath and requesting a breathing treatment. She was sent home with a roommate who is also currently in the hospital. Agreeable for rehabilitation placement. Objective Vitals Vital Signs Date Time Temp Pulse Resp B/P Pulse Ox O2 Delivery O2 Flow Rate FiO2 10/07/16 09:20 96 Nasal Cannula 2.00 10/07/16 07:45 74 20 141/71 93 10/07/16 04:30 98.0 90 21 135/65 92 10/07/16 00:25 98.1 71 19 126/66 96 10/06/16 20:58 98.0 93 19 134/63 94 10/06/16 19:30 96 Nasal Cannula 2.00 10/06/16 15:10 98.5 86 22 131/63 95 10/06/16 12:01 98.8 105 20 158/64 95 Result Diagram: 10/06/16 0323 10/07/16 0540 Imaging Last Impressions Chest X-Ray 10/05/161955 Signed Impressions: Service Date/Time: September 20:23 - CONCLUSION: 1. Patchy air space consolidation on the right. 2. Bilateral hilar fullness. Lymph adenopathy and/or mass not excludable. Nonemergent CT of the chest, preferably with intravenous contrast, recommended. Mehran Nicolas MD Lower Extremity Ultrasound 10/05/16 0000 Signed Impressions: Service Date/Time: September 20:58 - CONCLUSION: No DVT of the left lower extremity. Mehran Nicolas MD Head CT 10/05/16 0000 Signed Impressions: Service Date/Time: September 21:57 - CONCLUSION: No bleed or other acute intracranial abnormality. Chronic white matter changes. Mehran Nicolas MD Foot X-Ray 10/05/16 0000 Signed Impressions: Service Date/Time: September 20:26 - CONCLUSION: Soft tissue swelling without perceptible fracture. There is osteopenia and second through fifth hammertoe. Mehran Nicolas MD Chest CT 10/05/16 0000 Signed Impressions: Service Date/Time: September 22:04 - CONCLUSION: 1. Localized areas of paramediastinal consolidation of the middle lobe on the right and lingula on the left most likely infectious or inflammatory versus atelectasis. I don't see any measurable mass in either of these areas but there is an 11 mm nodule in the right upper lobe. Followup noncontrast chest CT recommended in no longer than 3 months. 2. There is an indeterminate low density mass partially seen in the liver. It is not convincing for a cyst or other benign structure. A nonemergent MRI of the abdomen with and without contrast is recommended. 3. Emphysema and coronary artery calcification. Mehran Nicolas MD Ankle X-Ray 10/05/16 0000 Signed Impressions: Service Date/Time: September 20:29 - CONCLUSION: 1. Osteopenia without fracture or subluxation. 2. Diffuse subcutaneous edema. Mehran Nicolas MD Objective Remarks GENERAL: Well-developed well-nourished. In no acute distress. SKIN: Warm and dry. Left medial ankle with ~3cm superficial ulcer, no erythema or drainage. HEENT: Normocephalic. Pupils equal and round. Mucous membranes pink and moist. CARDIOVASCULAR: Regular rate and rhythm. No murmur appreciated. RESPIRATORY: No accessory muscle use. Clear to auscultation. Breath sounds equal bilaterally. No wheezing. GASTROINTESTINAL: Abdomen soft, non-tender, nondistended. Bowel sounds x4. MUSCULOSKELETAL: Ulcer as above. No clubbing or cyanosis. 1+ edema. NEUROLOGICAL: Awake and alert. No focal neurological deficits. Moves upper and lower extremities spontaneously. Normal speech. PSYCHIATRIC: Appropriate mood and affect; insight and judgment normal. A/P Problem List: (1) Severe sepsis ICD Code: A41.9 Status: Acute (2) Community acquired pneumonia ICD Code: J18.9 Status: Acute (3) UTI (urinary tract infection) ICD Code: N39.0 Status: Acute (4) COPD (chronic obstructive pulmonary disease) ICD Code: J44.9 Status: Chronic (5) HTN (hypertension) ICD Code: I10 Status: Chronic Assessment and Plan 75-year-old female with history of Dementia, HTN, HLD, TIA, DVT, COPD, arthritis , presents after a fall at home. Severe Sepsis: tachycardic, tachypneic, lactic acid 2.1 upon arrival. Souce-PNA and UTI. Afebrile, no leukocytosis. Blood cultures with NGTD. On IV Abx with Rocephin/Azithro, transition to oral at MA. Continue gentle IVF. Improving. Community Acquired Pneumonia: CXR showed patchy consolidation at right lung. Chest CT showed localized areas of paramediastinal consolidation of RML and lingula on the left, most likely infectious vs inflammatory. Ordered urine legionella/pneumococcal antigen and sputum culture. Antibiotics as above. Mucinex bid. O2 as needed, titrate. UTI: UA with evidence of UTI. Urine culture with pansensitive Klebsiella. On antibiotics as above. Fall: suspect chronic deconditioning exacerbated by infection as above. Head CT images with no acute findings. Consulted PT, needs SNF, case management consulted. Fall precautions. LLE Wound and BLE Edema: chronic. Doppler U/S negative. LLE foot and ankle xray showed osteopenia without fracture/subluxation; diffuse subcutaneous edema. No signs of infection on exam. Continue patient's Lasix 20mg daily with KCl replacement. COPD: chronic, does not appear to be in acute exacerbation. Continue duonebs q12h scheduled and q6h prn. Dementia: Chronic, continue patient's Namenda. HTN/HLD: Chronic, continue patient's lisinopril. Monitor BP, adjust antihypertensives as needed. Clonidine prn. RUL nodule: incidental finding, discussed with the patient, needs outpatient repeat Chest CT in 3 months. Liver Mass: incidental finding on imaging, patient made aware, needs nonemergent outpatient MRI. Coronary Calcifications: seen on chest CT, patient informed of the findings. Patient denies recent chest pains. EKG showed RBBB, no changes when compared to EKG in 2015. Started on aspirin. DVT Prophylaxis: heparin Written by Weston Iyer, acting as scribe for Dr. Pabon on 10/07/16 at 10:05. The documentation accurately reflects the work performed [id number] by me on at 1005 Discharge Planning Patient significantly improved overnight. Patient could possibly be discharged to SNF later today versus tomorrow a.m. if she continues to improve. Still SOB even with slight exertion Problem Qualifiers (1) UTI (urinary tract infection): Qualified Code: N30.00 - Acute cystitis without hematuria (2) COPD (chronic obstructive pulmonary disease): Qualified Code: J42 - Chronic bronchitis, unspecified chronic bronchitis type (3) HTN (hypertension): Qualified Code: I10 - Essential hypertension Weston Iyer Oct 07, 2016 10:06 Maxim Pabon MD Oct 07, 2016 13:59
[2016-10-07] MEDS: SODIUM CHLOR 0.9% 1000 ML INJ 1,000 ML IV SCH (13:34)
[2016-10-07] MEDS: HEPARIN SODIUM - SQ 10,000 UNITS/ML VIAL SQ SCH ×2 (13:34→23:12)
[2016-10-07] MEDS: cefTRIAXone INJ 1,000 MG in SODIUM CHLORIDE 0.9% INJ 100 ML IV SCH (21:46)
[2016-10-07] MEDS: AZITHROMYCIN INJ 500 MG in SODIUM CHLOR 0.9% 250 ML INJ 250 ML IV SCH (23:07)
[2016-10-08] MEDS: RESP: ALBUTEROL 2.5 MG/IPRATROPIUM 0.5 MG NEB (PRN) NEB (01:50)
[2016-10-08 04:12] VITALS: BP 139/73; PULSE 73; RESP 20; TEMP 97.5; O2SAT 95
[2016-10-08] MEDS: INSULIN ASPART SUPPLEMENTAL SCALE SQ SCH ×4 (05:28→21:00)
[2016-10-08 07:40] VITALS: O2SAT 94
[2016-10-08] MEDS: RESP: ALBUTEROL 2.5 MG/IPRATROPIUM 0.5 MG NEB (SCH) NEB ×2 (07:40→17:52)
[2016-10-08 08:51] VITALS: BP 170/80; PULSE 78; RESP 18; TEMP 96.9; O2SAT 92
[2016-10-08] MEDS: MEMANTINE HCL 5 MG TAB PO SCH (09:00)
[2016-10-08] MEDS: SODIUM CHLORIDE 0.9% FLUSH 5 ML FLUSH FLUSH SCH ×2 (09:23→21:00)
[2016-10-08] MEDS: LISINOPRIL 20 MG TAB PO SCH (09:25)
[2016-10-08] MEDS ORDERED: CEFT500T3 PO (09:26)
[2016-10-08] MEDS: guaiFENesin E.R. 600 MG TAB PO SCH ×2 (09:26→21:02)
[2016-10-08] MEDS ORDERED: AZIT500T2 PO (09:26)
[2016-10-08] MEDS: POTASSIUM CHLORIDE 20 MEQ CONTROLLED RELEASE TAB PO SCH (09:27)
[2016-10-08] MEDS: FUROSEMIDE 20 MG TAB PO SCH (09:27)
[2016-10-08] MEDS: ASPIRIN EC 81 MG TABEC PO SCH (09:27)
--- NOTE | 2016-10-08 09:27 | HHI.PR ---
Subjective Remarks Follow-up for pneumonia, UTI, fall. The patient is doing well today. She is breathing better today. Chronically on 2 L O2 at home. Eating well. Agreeable for rehabilitation placement. Objective Vitals Vital Signs Date Time Temp Pulse Resp B/P Pulse Ox O2 Delivery O2 Flow Rate FiO2 10/08/16 08:51 96.9 78 18 170/80 92 10/08/16 07:40 94 Nasal Cannula 2.00 10/08/16 04:12 97.5 73 20 139/73 95 10/07/16 23:26 97.6 70 20 146/89 95 10/07/16 20:15 96 Nasal Cannula 3.00 10/07/16 19:45 97.6 77 20 163/81 95 10/07/16 16:00 96.0 84 20 153/71 95 10/07/16 12:00 98.0 79 20 175/89 94 I/O 10/07/16 10/07/16 10/07/16 10/08/16 10/08/16 10/08/16 07:00 15:00 23:00 07:00 15:00 23:00 Intake Total 420 ml Balance 420 ml Intake IV Total 420 ml # Voids 2 Result Diagram: 10/06/16 0323 10/07/16 0540 Imaging Last Impressions Chest X-Ray 10/05/161955 Signed Impressions: Service Date/Time: September 20:23 - CONCLUSION: 1. Patchy air space consolidation on the right. 2. Bilateral hilar fullness. Lymph adenopathy and/or mass not excludable. Nonemergent CT of the chest, preferably with intravenous contrast, recommended. Mehran Nicolas MD Lower Extremity Ultrasound 10/05/16 0000 Signed Impressions: Service Date/Time: September 20:58 - CONCLUSION: No DVT of the left lower extremity. Mehran Nicolas MD Head CT 10/05/16 0000 Signed Impressions: Service Date/Time: September 21:57 - CONCLUSION: No bleed or other acute intracranial abnormality. Chronic white matter changes. Mehran Nicolas MD Foot X-Ray 10/05/16 0000 Signed Impressions: Service Date/Time: September 20:26 - CONCLUSION: Soft tissue swelling without perceptible fracture. There is osteopenia and second through fifth hammertoe. Mehran Nicolas MD Chest CT 10/05/16 0000 Signed Impressions: Service Date/Time: September 22:04 - CONCLUSION: 1. Localized areas of paramediastinal consolidation of the middle lobe on the right and lingula on the left most likely infectious or inflammatory versus atelectasis. I don't see any measurable mass in either of these areas but there is an 11 mm nodule in the right upper lobe. Followup noncontrast chest CT recommended in no longer than 3 months. 2. There is an indeterminate low density mass partially seen in the liver. It is not convincing for a cyst or other benign structure. A nonemergent MRI of the abdomen with and without contrast is recommended. 3. Emphysema and coronary artery calcification. Mehran Nicolas MD Ankle X-Ray 10/05/16 0000 Signed Impressions: Service Date/Time: September 20:29 - CONCLUSION: 1. Osteopenia without fracture or subluxation. 2. Diffuse subcutaneous edema. Mehran Nicolas MD Objective Remarks GENERAL: Well-developed well-nourished. In no acute distress. Sitting up eating breakfast. Comfortable on 2 L O2. SKIN: Warm and dry. Left medial ankle with ~3cm superficial ulcer, no erythema or drainage. HEENT: Normocephalic. Pupils equal and round. Mucous membranes pink and moist. CARDIOVASCULAR: Regular rate and rhythm. No murmur appreciated. RESPIRATORY: No accessory muscle use. Clear to auscultation. Breath sounds equal bilaterally. No wheezing. GASTROINTESTINAL: Abdomen soft, non-tender, nondistended. Bowel sounds x4. MUSCULOSKELETAL: Ulcer as above. No clubbing or cyanosis. 1+ edema. NEUROLOGICAL: Awake and alert. No focal neurological deficits. Moves upper and lower extremities spontaneously. Normal speech. PSYCHIATRIC: Appropriate mood and affect; insight and judgment normal. A/P Problem List: (1) Severe sepsis ICD Code: A41.9 Status: Acute (2) Community acquired pneumonia ICD Code: J18.9 Status: Acute (3) UTI (urinary tract infection) ICD Code: N39.0 Status: Acute (4) COPD (chronic obstructive pulmonary disease) ICD Code: J44.9 Status: Chronic (5) HTN (hypertension) ICD Code: I10 Status: Chronic Assessment and Plan 75-year-old female with history of Dementia, HTN, HLD, TIA, DVT, COPD, arthritis , presents after a fall at home. Severe Sepsis: tachycardic, tachypneic, lactic acid 2.1 upon arrival. Souce-PNA and UTI. Afebrile, no leukocytosis. Blood cultures with NGTD. On IV Abx with Rocephin/Azithro, transition to oral at [place]. Continue gentle IVF. Improved. Community Acquired Pneumonia: CXR showed patchy consolidation at right lung. Chest CT showed localized areas of paramediastinal consolidation of RML and lingula on the left, most likely infectious vs inflammatory. Ordered urine legionella/pneumococcal antigen and sputum culture. Antibiotics as above. Mucinex bid. O2 as needed, titrate. UTI: UA with evidence of UTI. Urine culture with pansensitive Klebsiella. On antibiotics as above. Fall: suspect chronic deconditioning exacerbated by infection as above. Head CT images with no acute findings. Consulted PT, needs SNF, case management consulted. Fall precautions. LLE Wound and BLE Edema: chronic. Doppler U/S negative. LLE foot and ankle xray showed osteopenia without fracture/subluxation; diffuse subcutaneous edema. No signs of infection on exam. Continue patient's Lasix 20mg daily with KCl replacement. COPD: Chronic respiratory failure on home O2. Chronic, does not appear to be in acute exacerbation. Continue duonebs q12h scheduled and q6h prn. Dementia: Chronic, continue patient's Namenda. HTN/HLD: Chronic, continue patient's lisinopril. Monitor BP, adjust antihypertensives as needed. Clonidine prn. RUL nodule: incidental finding, discussed with the patient, needs outpatient repeat Chest CT in 3 months. Liver Mass: incidental finding on imaging, patient made aware, needs nonemergent outpatient MRI. Coronary Calcifications: seen on chest CT, patient informed of the findings. Patient denies recent chest pains. EKG showed RBBB, no changes when compared to EKG in 2015. Started on aspirin. DVT Prophylaxis: heparin Written by Weston Iyer, acting as scribe for Dr. Pabon on 10/08/16 at 09:23. The documentation accurately reflects the work performed [id number] by me on at 0923 Discharge Planning Discharge to SNF when arranged. Condition on discharge: Improved Heart healthy Diet as tolerated Regular activity Rx written: Azithromycin, Ceftin, follow-up chest x-ray Follow-up with primary care physician Problem Qualifiers (1) UTI (urinary tract infection): Qualified Code: N30.00 - Acute cystitis without hematuria (2) COPD (chronic obstructive pulmonary disease): Qualified Code: J42 - Chronic bronchitis, unspecified chronic bronchitis type (3) HTN (hypertension): Qualified Code: I10 - Essential hypertension Weston Iyer Oct 08, 2016 09:27 Maxim Pabon MD Oct 08, 2016 15:15
[2016-10-08] MEDS: HEPARIN SODIUM - SQ 10,000 UNITS/ML VIAL SQ SCH ×2 (12:11→23:15)
[2016-10-08 16:00] VITALS: BP 154/78; PULSE 47; RESP 18
[2016-10-08] MEDS: ACETAMINOPHEN 325 MG TAB PO PRN (16:17)
--- NOTE | 2016-10-08 16:21 | HHI.DCPOC ---
Discharge Care Plan Diagnosis: (1) Community acquired pneumonia Your Health Problems Are: Difficulty with ADL Exercise Tolerance Goals to Promote Your Health * To prevent worsening of your condition and complications * To maintain your health at the optimal level Directions to Meet Your Goals Take your medications as prescribed Follow your dietary instruction Follow activity as directed Keep your appointments as scheduled Take your immunizations and boosters as scheduled If your symptoms worsen call your PCP, if no PCP go to Urgent Care Center or Emergency Room Smoking is Dangerous to Your Health. Avoid second hand smoke Call the 24-hour hour crisis hotline for domestic abuse at Maxim Pabon MD Oct 08, 2016 16:21
[2016-10-08] MEDS ORDERED: POTA20TA5 PO (16:23)
[2016-10-08] MEDS ORDERED: ASPI81TA11 PO (16:23)
[2016-10-08] MEDS ORDERED: IPRASOL NEB ×2 (16:23)
[2016-10-08] MEDS: cefTRIAXone INJ 1,000 MG in SODIUM CHLORIDE 0.9% INJ 100 ML IV SCH (21:03)
[2016-10-08 21:04] VITALS: BP 154/80; PULSE 73; RESP 20; TEMP 97; O2SAT 95
[2016-10-08] MEDS: AZITHROMYCIN INJ 500 MG in SODIUM CHLOR 0.9% 250 ML INJ 250 ML IV SCH (23:14)
[2016-10-09 01:22] VITALS: BP 174/99; PULSE 68; RESP 20; TEMP 97.1; O2SAT 95
[2016-10-09 05:14] VITALS: BP 204/98; PULSE 74; RESP 20; TEMP 97.4; O2SAT 97
[2016-10-09] MEDS: INSULIN ASPART SUPPLEMENTAL SCALE SQ SCH ×3 (05:35→16:00)
[2016-10-09] MEDS: RESP: ALBUTEROL 2.5 MG/IPRATROPIUM 0.5 MG NEB (PRN) NEB (05:54)
[2016-10-09 05:59] VITALS: O2SAT 96
[2016-10-09 07:53] VITALS: BP 125/66; PULSE 71; RESP 18; TEMP 97.6; O2SAT 92
[2016-10-09] MEDS: RESP: ALBUTEROL 2.5 MG/IPRATROPIUM 0.5 MG NEB (SCH) NEB (08:01)
[2016-10-09 08:02] VITALS: O2SAT 94
[2016-10-09] MEDS: POTASSIUM CHLORIDE 20 MEQ CONTROLLED RELEASE TAB PO SCH (09:00)
[2016-10-09] MEDS: guaiFENesin E.R. 600 MG TAB PO SCH (09:00)
[2016-10-09] MEDS: FUROSEMIDE 20 MG TAB PO SCH (09:28)
[2016-10-09] MEDS: LISINOPRIL 20 MG TAB PO SCH (09:28)
[2016-10-09] MEDS: ASPIRIN EC 81 MG TABEC PO SCH (09:28)
[2016-10-09] MEDS: SODIUM CHLORIDE 0.9% FLUSH 5 ML FLUSH FLUSH SCH (09:29)
[2016-10-09] MEDS: MEMANTINE HCL 5 MG TAB PO SCH (09:29)
--- NOTE | 2016-10-09 10:24 | HHI.PR ---
Subjective Remarks Follow-up for elevated BP. Had an episode of elevated blood pressure overnight. She states that she had to use the bedside commode last night and her blood pressure was checked right after she got up and it was noted to be elevated. She denies any associated headache or dizziness. Objective Vitals Vital Signs Date Time Temp Pulse Resp B/P Pulse Ox O2 Delivery O2 Flow Rate FiO2 10/09/16 08:02 94 Nasal Cannula 2.00 10/09/16 07:53 97.6 71 18 125/66 92 10/09/16 05:59 96 Nasal Cannula 3.00 10/09/16 05:14 97.4 74 20 204/98 97 10/09/16 01:22 97.1 68 20 174/99 95 10/08/16 21:04 97.0 73 20 154/80 95 10/08/16 18:08 20 10/08/16 16:00 47 18 154/78 I/O 10/08/16 10/08/16 10/08/16 10/09/16 10/09/16 10/09/16 07:00 15:00 23:00 07:00 15:00 23:00 Intake Total 100 ml Balance 100 ml Intake IV Total 100 ml # Voids 2 Result Diagram: 10/06/16 0323 10/07/16 0540 Imaging Last Impressions Chest X-Ray 10/05/161955 Signed Impressions: Service Date/Time: September 20:23 - CONCLUSION: 1. Patchy air space consolidation on the right. 2. Bilateral hilar fullness. Lymph adenopathy and/or mass not excludable. Nonemergent CT of the chest, preferably with intravenous contrast, recommended. Mehran Nicolas MD Lower Extremity Ultrasound 10/05/16 0000 Signed Impressions: Service Date/Time: September 20:58 - CONCLUSION: No DVT of the left lower extremity. Mehran Nicolas MD Head CT 10/05/16 0000 Signed Impressions: Service Date/Time: September 21:57 - CONCLUSION: No bleed or other acute intracranial abnormality. Chronic white matter changes. Mehran Nicolas MD Foot X-Ray 10/05/16 0000 Signed Impressions: Service Date/Time: September 20:26 - CONCLUSION: Soft tissue swelling without perceptible fracture. There is osteopenia and second through fifth hammertoe. Mehran Nicolas MD Chest CT 10/05/16 0000 Signed Impressions: Service Date/Time: September 22:04 - CONCLUSION: 1. Localized areas of paramediastinal consolidation of the middle lobe on the right and lingula on the left most likely infectious or inflammatory versus atelectasis. I don't see any measurable mass in either of these areas but there is an 11 mm nodule in the right upper lobe. Followup noncontrast chest CT recommended in no longer than 3 months. 2. There is an indeterminate low density mass partially seen in the liver. It is not convincing for a cyst or other benign structure. A nonemergent MRI of the abdomen with and without contrast is recommended. 3. Emphysema and coronary artery calcification. Mehran Nicolas MD Ankle X-Ray 10/05/16 0000 Signed Impressions: Service Date/Time: September 20:29 - CONCLUSION: 1. Osteopenia without fracture or subluxation. 2. Diffuse subcutaneous edema. Mehran Nicolas MD Objective Remarks GENERAL: Well-developed well-nourished. In no acute distress. Comfortable on 2 L O2. SKIN: Warm and dry. Left medial ankle with ~3cm superficial ulcer, no erythema or drainage. HEENT: Normocephalic. Pupils equal and round. Mucous membranes pink and moist. CARDIOVASCULAR: Regular rate and rhythm. No murmur appreciated. RESPIRATORY: No accessory muscle use. Clear to auscultation. Left basilar crackles. GASTROINTESTINAL: Abdomen soft, non-tender, nondistended. Bowel sounds x4. MUSCULOSKELETAL: Ulcer as above. No clubbing or cyanosis. 1+ edema. NEUROLOGICAL: Awake and alert. No focal neurological deficits. Moves upper and lower extremities spontaneously. Normal speech. PSYCHIATRIC: Appropriate mood and affect; insight and judgment normal. A/P Problem List: (1) Severe sepsis ICD Code: A41.9 Status: Acute (2) Community acquired pneumonia ICD Code: J18.9 Status: Acute (3) UTI (urinary tract infection) ICD Code: N39.0 Status: Acute (4) COPD (chronic obstructive pulmonary disease) ICD Code: J44.9 Status: Chronic (5) HTN (hypertension) ICD Code: I10 Status: Chronic Assessment and Plan 75-year-old female with history of Dementia, HTN, HLD, TIA, DVT, COPD, arthritis , presents after a fall at home. Severe Sepsis: tachycardic, tachypneic, lactic acid 2.1 upon arrival. Souce-PNA and UTI. Afebrile, no leukocytosis. Blood cultures with NGTD. On IV Abx with Rocephin/Azithro, transition to oral at [place]. Continue gentle IVF. Improved. Community Acquired Pneumonia: CXR showed patchy consolidation at right lung. Chest CT showed localized areas of paramediastinal consolidation of RML and lingula on the left, most likely infectious vs inflammatory. Ordered urine legionella/pneumococcal antigen and sputum culture. Antibiotics as above. Mucinex bid. O2 as needed, titrate. UTI: UA with evidence of UTI. Urine culture with pansensitive Klebsiella. On antibiotics as above. Fall: suspect chronic deconditioning exacerbated by infection as above. Head CT images with no acute findings. Consulted PT, needs SNF, case management consulted. Fall precautions. LLE Wound and BLE Edema: chronic. Doppler U/S negative. LLE foot and ankle xray showed osteopenia without fracture/subluxation; diffuse subcutaneous edema. No signs of infection on exam. Continue patient's Lasix 20mg daily with KCl replacement. COPD: Chronic respiratory failure on home O2. Chronic, does not appear to be in acute exacerbation. Continue duonebs q12h scheduled and q6h prn. Dementia: Chronic, continue patient's Namenda. HTN/HLD: Chronic, continue patient's lisinopril. Monitor BP, adjust antihypertensives as needed. Clonidine prn. 10/09 Elevated BP overnight likely secondary to blood pressure check during exertion to the commode. Discussed with nursing concerning BP checks. RUL nodule: incidental finding, needs outpatient repeat Chest CT in 3 months. Liver Mass: incidental finding on imaging, patient made aware, needs nonemergent outpatient MRI. Coronary Calcifications: seen on chest CT. EKG showed RBBB, no changes when compared to EKG in 2015. Started on aspirin. DVT Prophylaxis: heparin Written by Weston Iyer, acting as scribe for Dr. Pabon on 10/09/16 at 10:23. The documentation accurately reflects the work performed [id number] by me on at 1023 Discharge Planning Discharge to SNF when arranged. Insurance requests reevaluation by PT. Condition on discharge: Improved Heart healthy Diet as tolerated Regular activity Rx written: Azithromycin, Ceftin, follow-up chest x-ray Follow-up with primary care physician Problem Qualifiers (1) UTI (urinary tract infection): Qualified Code: N30.00 - Acute cystitis without hematuria (2) COPD (chronic obstructive pulmonary disease): Qualified Code: J42 - Chronic bronchitis, unspecified chronic bronchitis type (3) HTN (hypertension): Qualified Code: I10 - Essential hypertension Weston Iyer Oct 09, 2016 10:24 Maxim Pabon MD Oct 09, 2016 16:30
[2016-10-09] MEDS: HEPARIN SODIUM - SQ 10,000 UNITS/ML VIAL SQ SCH (11:15)
[2016-10-09 11:39] VITALS: BP 130/84; PULSE 83; RESP 20; TEMP 98.1; O2SAT 96
[2016-10-09] MEDS: ACETAMINOPHEN 325 MG TAB PO PRN (15:51)
--- NOTE | 2016-10-18 13:02 | HHI.DS ---
Discharge Summary Admission Date Oct 06, 2016 at 10:21 Discharge Date: Oct 18, 2016 Admitting Diagnosis altered mental status, cellulitis, UTI, lung mass (1) Severe sepsis ICD Code: A41.9 Diagnosis: Principal (2) Community acquired pneumonia ICD Code: J18.9 Diagnosis: Principal (3) UTI (urinary tract infection) ICD Code: N39.0 Diagnosis: Principal (4) COPD (chronic obstructive pulmonary disease) ICD Code: J44.9 Diagnosis: Secondary (5) HTN (hypertension) ICD Code: I10 Diagnosis: Secondary Procedures none Brief History - From Admission 75-year-old female with history of Dementia, HTN, HLD, TIA, DVT, COPD, arthritis , presents after a fall at home. Patient reports she lives with a roommate, was using her cane at home but states she "didn't have the right position" and just fell to the ground. She reports 2 falls in the past week. She denies any injury or loss of consciousness, although her left leg now feels "sore". She has a chronic wound from a few years ago at the left medial lower extremity, with some surrounding erythema but no drainage. She has been taking ibuprofen as needed for the pain. Upon arrival to the ED, CXR showed possible pneumonia. The patient reports chronic shortness of breath at baseline, improves after breathing treatments, and with occasional cough productive of yellow sputum. Denies fevers or chills. Denies chest pains. Urinalysis also with evidence of UTI. Patient denies dysuria, abdominal/flank pain. The patient has no other medical complaints at this time. Imaging Last Impressions Chest X-Ray 10/05/161955 Signed Impressions: Service Date/Time: September 20:23 - CONCLUSION: 1. Patchy air space consolidation on the right. 2. Bilateral hilar fullness. Lymph adenopathy and/or mass not excludable. Nonemergent CT of the chest, preferably with intravenous contrast, recommended. Mehran Nicolas MD Lower Extremity Ultrasound 10/05/16 0000 Signed Impressions: Service Date/Time: September 20:58 - CONCLUSION: No DVT of the left lower extremity. Mehran Nicolas MD Head CT 10/05/16 0000 Signed Impressions: Service Date/Time: September 21:57 - CONCLUSION: No bleed or other acute intracranial abnormality. Chronic white matter changes. Mehran Nicolas MD Foot X-Ray 10/05/16 0000 Signed Impressions: Service Date/Time: September 20:26 - CONCLUSION: Soft tissue swelling without perceptible fracture. There is osteopenia and second through fifth hammertoe. Mehran Nicolas MD Chest CT 10/05/16 0000 Signed Impressions: Service Date/Time: September 22:04 - CONCLUSION: 1. Localized areas of paramediastinal consolidation of the middle lobe on the right and lingula on the left most likely infectious or inflammatory versus atelectasis. I don't see any measurable mass in either of these areas but there is an 11 mm nodule in the right upper lobe. Followup noncontrast chest CT recommended in no longer than 3 months. 2. There is an indeterminate low density mass partially seen in the liver. It is not convincing for a cyst or other benign structure. A nonemergent MRI of the abdomen with and without contrast is recommended. 3. Emphysema and coronary artery calcification. Mehran Nicolas MD Ankle X-Ray 10/05/16 0000 Signed Impressions: Service Date/Time: September 20:29 - CONCLUSION: 1. Osteopenia without fracture or subluxation. 2. Diffuse subcutaneous edema. Mehran Nicolas MD PE at Discharge GENERAL: Well-developed well-nourished. In no acute distress. Comfortable on 2 L O2. SKIN: Warm and dry. Left medial ankle with ~3cm superficial ulcer, no erythema or drainage. HEENT: Normocephalic. Pupils equal and round. Mucous membranes pink and moist. CARDIOVASCULAR: Regular rate and rhythm. No murmur appreciated. RESPIRATORY: No accessory muscle use. Clear to auscultation. Left basilar crackles. GASTROINTESTINAL: Abdomen soft, non-tender, nondistended. Bowel sounds x4. MUSCULOSKELETAL: Ulcer as above. No clubbing or cyanosis. 1+ edema. NEUROLOGICAL: Awake and alert. No focal neurological deficits. Moves upper and lower extremities spontaneously. Normal speech. PSYCHIATRIC: Appropriate mood and affect; insight and judgment normal. Hospital Course 75-year-old female with history of Dementia, HTN, HLD, TIA, DVT, COPD, arthritis , presents after a fall at home. Severe Sepsis: tachycardic, tachypneic, lactic acid 2.1 upon arrival. Souce-PNA and UTI. Afebrile, no leukocytosis. Blood cultures with NGTD. On IV Abx with Rocephin/Azithro, transition to oral at [place]. Continue gentle IVF. Improved. Community Acquired Pneumonia: CXR showed patchy consolidation at right lung. Chest CT showed localized areas of paramediastinal consolidation of RML and lingula on the left, most likely infectious vs inflammatory. Ordered urine legionella/pneumococcal antigen and sputum culture. Antibiotics as above. Mucinex bid. O2 as needed, titrate. UTI: UA with evidence of UTI. Urine culture with pansensitive Klebsiella. On antibiotics as above. Fall: suspect chronic deconditioning exacerbated by infection as above. Head CT images with no acute findings. Consulted PT, needs SNF, case management consulted. Fall precautions. LLE Wound and BLE Edema: chronic. Doppler U/S negative. LLE foot and ankle xray showed osteopenia without fracture/subluxation; diffuse subcutaneous edema. No signs of infection on exam. Continue patient's Lasix 20mg daily with KCl replacement. COPD: Chronic respiratory failure on home O2. Chronic, does not appear to be in acute exacerbation. Continue duonebs q12h scheduled and q6h prn. Dementia: Chronic, continue patient's Namenda. HTN/HLD: Chronic, continue patient's lisinopril. Monitor BP, adjust antihypertensives as needed. Clonidine prn. 10/09 Elevated BP overnight likely secondary to blood pressure check during exertion to the commode. Discussed with nursing concerning BP checks. RUL nodule: incidental finding, needs outpatient repeat Chest CT in 3 months. Liver Mass: incidental finding on imaging, patient made aware, needs nonemergent outpatient MRI. Coronary Calcifications: seen on chest CT. EKG showed RBBB, no changes when compared to EKG in 2015. Started on aspirin. DVT Prophylaxis: heparin Pt Condition on Discharge: Stable Discharge Disposition: Discharge to SNF Discharge Time: > 30 minutes Discharge Instructions DIET: Follow Instructions for: Heart Healthy Diet, Diabetic Diet Activities you can perform: Regular-No Restrictions Activities to Avoid: Driving Follow up Referrals: PCP Follow-up - 2-3 Days with Rei Alfredo M.d. New Medications: Azithromycin (Azithromycin) 500 Mg Tab 500 MG PO DAILY Infection #5 Ref 0 TAB Cefuroxime (Ceftin) 500 Mg Tab 500 MG PO BID Infection #[address] Ref [address] (Aspirin EC) 81 Mg Tabdr 81 MG PO DAILY Prevent Blood Clot #30 TAB Ipratropium-Albuterol Neb (Duoneb) 0.5-2.5 Mg/3 Ml Neb 1 AMPULE NEB Q12HR NEB Breathing Treatment #60 ML Ipratropium-Albuterol Neb (Duoneb) 0.5-2.5 Mg/3 Ml Neb 1 AMPULE NEB Q6HR NEB PRN wheezing #31 ML Potassium Chloride Microencaps (Potassium Chloride Microencaps) 20 Meq Tab 20 MEQ PO DAILY Electrolyte Replacement #30 TAB Continued Medications: Furosemide (Lasix) 20 Mg Tab 1 TAB PO DAILY #30 Ref 0 TAB Lisinopril (Lisinopril) 40 Mg Tab 40 MG PO DAILY Blood Pressure Management #30 Ref 0 TAB Memantine (Namenda) 5 Mg Tab 1 TAB PO DAILY Alzheimer's Dementia #30 Ref 0 TAB Maxim Pabon MD Oct 18, 2016 13:01
== END 2016-10-09 21:49 | disposition short-term general hospital (02) | DRG 871 ==
LOC: NEPE 19:49 → NEDA 22:40 → NEPHCDU 10-06 02:39 → OBSVTOIN 10-06 10:21
PROVIDERS: ADMIT Hospitalist; ATTEND Hospitalist
DX: A41.9 Sepsis, unspecified organism (principal); J18.9 Pneumonia, unspecified organism; J96.10 Chronic respiratory failure, unspecified whether with hypoxia or hypercapnia; Z99.81 Dependence on supplemental oxygen; L03.116 Cellulitis of left lower limb; F03.90 Unspecified dementia, unspecified severity, without behavioral disturbance, psychotic disturbance, mood disturbance, and anxiety; N30.00 Acute cystitis without hematuria; J44.9 Chronic obstructive pulmonary disease, unspecified; R73.9 Hyperglycemia, unspecified; Z91.81 History of falling; M19.90 Unspecified osteoarthritis, unspecified site; J45.909 Unspecified asthma, uncomplicated; E78.00 Pure hypercholesterolemia, unspecified; Z86.73 Personal history of transient ischemic attack (TIA), and cerebral infarction without residual deficits; I10 Essential (primary) hypertension; Z86.718 Personal history of other venous thrombosis and embolism; Z87.891 Personal history of nicotine dependence; W19.XXXA Unspecified fall, initial encounter; E78.5 Hyperlipidemia, unspecified; Z80.0 Family history of malignant neoplasm of digestive organs; R65.20 Severe sepsis without septic shock; M85.80 Other specified disorders of bone density and structure, unspecified site; K76.9 Liver disease, unspecified; I25.10 Atherosclerotic heart disease of native coronary artery without angina pectoris; I45.10 Unspecified right bundle-branch block; Y92.009 Unspecified place in unspecified non-institutional (private) residence as the place of occurrence of the external cause; B96.1 Klebsiella pneumoniae [K. pneumoniae] as the cause of diseases classified elsewhere; Z23 Encounter for immunization
CPT/HCPCS: 70450; 71010; 71260; 73610; 73630; 80048; 81001; 82948; 83036; 83605; 83735; 84484; 85025; 85610; 85730; 87040; 87070; 87077; 87086; 87186; 87205; 90686; 90732; 93005; 93971; 94640; 94664; G0378; J0456; J0696; J1644; J1815; J7030; J7050; P9612; Q2038; Q9967

== ENCOUNTER 2017-02-01 18:46 | Inpatient (IN) | payer MEDICARE, MEDICAID ==
[~2017-02-01] VITALS: Ht 165.1 cm; Wt 51.4 kg
[~2017-02-01 18:46] MED LIST changes: -ALBU1AER INH; +ASPI81TA11 PO; +AZIT500T2 PO; +CEFT500T3 PO; -CLON.1 PO; -DUONSOL2 NEB; +FURO1TAB62 PO; +IPRASOL NEB; -LISI-366 PO; +LISI40TA PO; -MACR100C PO; +NAME5TAB2 PO; +POTA20TA5 PO; -SIMV80TA PO; -SPIRCAP INH; -Z.0.OXYGEN INH
[2017-02-01 19:14] VITALS: BP 86/65; PULSE 128; RESP 40; TEMP 97.4; O2SAT 94
[2017-02-01] MEDS ORDERED: SODIUM CHLORIDE 0.9% FLUSH 10 ML FLUSH IVF PRN (19:15)
[2017-02-01] MEDS ORDERED: methylPREDNISolone SOD SUCC 125 MG/2 ML VIAL IVP ONE (19:15)
--- NOTE | 2017-02-01 19:27 | PD ---
HPI Chief Complaint: Altered Mental Status Time Seen by Provider: 19:14 Travel History International Travel<30 days: No Contact w/Intl Traveler<30days: No History of Present Illness HPI 76 Patient arrives from assisted living facility. She has been coughing throughout the course of the weekend short of breath. She has COPD. Medical records indicate a history of "altered mental status, unspecified." EMS reports the patient is normally conversant and awake and interactive with the staff and patients. On scene the O2 sat was 87%. The patient is on oxygen 2 L 24 7 and it was and had been increased to 4 L prior to EMS arrival. They note the heart rate was about 130 on scene. The patient received one breathing treatment. The respiratory rate remained about 40 throughout the transport. No record of fever. Patient is short of breath in the ER and somewhat altered and unable to answer questions in any great detail. She did confirm she was short of breath. EMS reports patient was recently started on Ativan. PFSH Past Medical History Arthritis: Yes Asthma: Yes Blood Disorders: No Anxiety: No Depression: No Heart Rhythm Problems: No Cancer: No Cardiovascular Problems: Yes High Cholesterol: Yes Chemotherapy: No Chest Pain: No Congestive Heart Failure: No COPD: Yes Cerebrovascular Accident: Yes (TIA) Diabetes: No Diminished Hearing: No Deep Vein Thrombosis: Yes Endocrine: No Gastrointestinal Disorders: Yes Genitourinary: No Hypertension: Yes Immune Disorder: No Musculoskeletal: No Neurologic: Yes Psychiatric: No Reproductive: No Respiratory: Yes (COPD/EMPHYSEMA) Immunizations Current: No Radiation Therapy: No Sleep Apnea: No Thyroid Disease: No PNEUMOCCOCAL Vaccine (Year): 1 Menopausal: Yes Tubal Ligation: Yes Past Surgical History Gynecologic Surgery: Yes (TUBES TIED) Other Surgery: Yes (LT VEIN STRIPPING 1985) Social History Alcohol Use: No Tobacco Use: No (quit 15 years ago) Substance Use: No Allergies-Medications (Allergen,Severity, Reaction): Coded Allergies: Hydrocodone (Verified Allergy, Unknown, 02/01/17) Penicillin (Verified Allergy, Unknown, 02/01/17) Morphine (Verified Adverse Reaction, Intermediate, Nausea/Vomiting, ) Reported Meds & Prescriptions Reported Meds & Active Scripts Active Potassium Chloride Microencaps 20 Meq Tab 20 Meq PO DAILY Duoneb (Ipratropium-Albuterol Neb) 0.5-2.5 Mg/3 Ml Neb 1 Ampule NEB Q12HR NEB Aspirin EC (Aspirin) 81 Mg Tabdr 81 Mg PO DAILY Reported Levaquin (Levofloxacin) 500 Mg Tab 500 Mg PO DAILY Fluoxetine HCl (Fluoxetine HCl (Pmdd)) 20 Mg Tab 20 Mg PO DAILY Memantine 10 Mg Tab 10 Mg PO BID Prednisone 5 Mg Tab 5 Mg PO BID Lasix (Furosemide) 20 Mg Tab 1 Tab PO DAILY Lisinopril 40 Mg Tab 40 Mg PO DAILY Review of Systems ROS Limitations: Clinical Condition, Altered Mental Status Physical Exam Narrative GENERAL: 76-year-old female, neck extended eyes shut mouth wide open; opens eyes and responds to voice and answers questions with single whispered words SKIN: Focused skin assessment warm/dry. HEAD: Atraumatic. Normocephalic. EYES: Pupils equal and round. No scleral icterus. No injection or drainage. ENT: No nasal bleeding or discharge. Mucous membranes pink and moist. NECK: Trachea midline. No JVD. CARDIOVASCULAR: Regular rhythm. Rate about 120. RESPIRATORY: Tachypnea. Wheezing present bilaterally. GASTROINTESTINAL: Abdomen soft, non-tender, nondistended. Hepatic and splenic margins not palpable. MUSCULOSKELETAL: No obvious deformities. No clubbing. No cyanosis. No edema. NEUROLOGICAL: Asleep. Answers some questions with single words. Moves all extremities. PSYCHIATRIC: Appropriate mood and affect; insight and judgment normal. Data Data Last Documented VS Vital Signs Date Time Temp Pulse Resp B/P Pulse Ox O2 Delivery O2 Flow Rate FiO2 02/01/17 21:28 128 40 92/63 94 15 02/01/17 20:15 Non-Rebreather 02/01/17 19:47 100 02/01/17 19:14 97.4 Orders Complete Blood Count With Diff (02/01/17 19:14) Basic Metabolic Panel (Bmp) (02/01/17 19:14) B-Type Natriuretic Peptide (02/01/17 19:14) Magnesium (Mg) (02/01/17 19:14) Ckmb (Isoenzyme) Profile (02/01/17 19:14) Troponin I (02/01/17 19:14) Arterial Blood Gas (Abg) (02/01/17 19:14) Urinalysis - C+S If Indicated (02/01/17 19:14) Iv Access Insert/Monitor (02/01/17 19:14) Electrocardiogram (02/01/17 19:14) Ecg Monitoring (02/01/17 19:14) Oximetry (02/01/17 19:14) Oxygen Administration (02/01/17 19:14) Chest, Single Ap (02/01/17 19:14) Sodium Chloride 0.9% Flush (Ns Flush) (02/01/17 19:15) Methylprednisolone So Succ Inj (Solumedr (02/01/17 19:15) Albuterol-Ipratropium Neb (Duoneb Neb) (02/01/17 19:15) Lactic Acid (02/01/17 19:50) Urinary Catheter Insert/Apply (02/01/17 19:50) Sodium Chlor 0.9% 1000 Ml Inj (Ns 1000 M (02/01/17 20:00) Sodium Chlor 0.9% 1000 Ml Inj (Ns 1000 M (02/01/17 20:00) Piperacil-Tazo 2.25 Gm Premix (Zosyn 2.2 (02/01/17 20:00) Vancomycin Inj (Vancomycin Inj) (02/01/17 20:00) Blood Culture (02/01/17 19:50) Urine Culture (02/01/17 19:48) Ct Abd/Pel W/O Iv Contrast (02/01/17 20:30) Hepatic Functional Panel (02/01/17 20:34) Lipase (02/01/17 20:34) Potassium, Serum (K) (02/01/17 23:43) Calcium Gluconate Inj (Calcium Gluconate (02/01/17 20:45) Insulin Human Regular Inj (Novolin R Inj (02/01/17 21:00) Dextrose 50% In [place] (Vial) Inj (D50w (Vi (02/01/17 20:45) Sodium Polysty Sulfate Liq (Kayexalate L (02/01/17 20:45) Sodium Chlor 0.9% 1000 Ml Inj (Ns 1000 M (02/01/17 22:45) Metronidazole 500 Mg Inj (Flagyl 500 Mg (02/01/17 22:45) Admit Order (Ed Use Only) (02/01/17 22:41) Labs Laboratory Tests Test 02/01/17 02/01/17 02/01/17 02/01/17 19:30 19:45 19:48 19:55 White Blood Count 42.1 TH/MM3 Red Blood Count 6.13 MIL/MM3 Hemoglobin 17.9 GM/DL Hematocrit 55.6 % Mean Corpuscular Volume 90.7 FL Mean Corpuscular Hemoglobin 29.1 PG Mean Corpuscular Hemoglobin 32.1 % Concent Red Cell Distribution Width 16.9 % Platelet Count 289 TH/MM3 Mean Platelet Volume 9.7 FL Neutrophils (%) (Auto) % Lymphocytes (%) (Auto) % Monocytes (%) (Auto) % Eosinophils (%) (Auto) % Basophils (%) (Auto) % Neutrophils # (Auto) TH/MM3 Lymphocytes # (Auto) TH/MM3 Monocytes # (Auto) TH/MM3 Eosinophils # (Auto) TH/MM3 Basophils # (Auto) TH/MM3 CBC Comment AUTO DIFF Differential Total Cells 100 Counted Neutrophils % (Manual) 32 % Band Neutrophils % 23 % Lymphocytes % 42 % Monocytes % 3 % Neutrophils # (Manual) 23.2 TH/MM3 Differential Comment FINAL DIFF MANUAL Toxic Granulation 1+ Toxic Vacuolation PRESENT Dohle Bodies PRESENT Platelet Estimate NORMAL Platelet Morphology Comment NORMAL Sodium Level 141 MEQ/L Potassium Level 5.9 MEQ/L Chloride Level 103 MEQ/L Carbon Dioxide Level 21.7 MEQ/L Anion Gap 16 MEQ/L Blood Urea Nitrogen 75 MG/DL Creatinine 3.53 MG/DL Estimat Glomerular Filtration 13 ML/MIN Rate Random Glucose 228 MG/DL Calcium Level 9.4 MG/DL Magnesium Level 3.2 MG/DL Total Bilirubin 0.5 MG/DL Direct Bilirubin 0.2 MG/DL Indirect Bilirubin 0.3 MG/DL Aspartate Amino Transf 26 U/L (AST/SGOT) Alanine Aminotransferase 21 U/L (ALT/SGPT) Alkaline Phosphatase 97 U/L Total Creatine Kinase 28 U/L Troponin I LESS THAN 0.02 NG/ML B-Type Natriuretic Peptide 65 PG/ML Total Protein 6.5 GM/DL Albumin 2.5 GM/DL Lipase 112 U/L Blood Gas Puncture Site RT FEMORAL Blood Gas Patient Temperature 98.6 Blood Gas HCO3 16 mmol/L Blood Gas Base Excess -9.0 mmol/L Blood Gas Oxygen Saturation 98 % Arterial Blood pH 7.31 Arterial Blood Partial 33 mmHg Pressure CO2 Arterial Blood Partial 203 mmHG Pressure O2 Arterial Blood Oxygen Content 23.1 Vol % Arterial Blood 0.7 % Carboxyhemoglobin Arterial Blood Methemoglobin 0.4 % Blood Gas Hemoglobin 16.4 G/DL Oxygen Delivery Device Non-Rebreathing Mask Blood Gas Liter Flow 15 L/M Blood Gas Inspired Oxygen 100 % Urine Color YELLOW Urine Turbidity HAZY Urine pH 5.0 Urine Specific [place] 1.020 Urine Protein 30 mg/dL Urine Glucose (UA) NEG mg/dL Urine Ketones NEG mg/dL Urine Occult Blood TRACE Urine Nitrite NEG Urine Bilirubin NEG Urine Urobilinogen LESS THAN 2.0 MG/DL Urine Leukocyte Esterase MOD Urine RBC 1 /hpf Urine WBC 15 /hpf Urine Squamous Epithelial 1 /hpf Cells Urine Amorphous Sediment FEW Urine Bacteria RARE /hpf Urine Hyaline Casts 26 /lpf Urine Mucus FEW /lpf Microscopic Urinalysis Comment CULTURE INDICATED Lactic Acid Level 7.8 mmol/L Test 02/01/17 21:30 Potassium Level 6.0 MEQ/L [facility] Medical Decision Making Medical Screen Exam Complete: Yes Emergency Medical Condition: Yes Medical Record Reviewed: Yes Differential Diagnosis Pneumonia, COPD exacerbation, UTI, electrolyte imbalance, anemia Narrative Course CBC & BMP Diagram 02/01/17 19:30 02/01/17 21:30 LFTs normal Tn < 0.02 Lipase 112 Lactic acid 7.8 AB./16 BE -9.0, PO2 203 UA: UTI present Last 24 hours Impressions Abdomen/Pelvis CT 02/01/172029 Signed Impressions: Service Date/Time: January 22:08 - CONCLUSION: 1. Severely limited exam from lack of oral and intravenous contrast. 2. Bowel wall thickening ascending colon suspicious for a colitis. 3. Marked emphysematous changes in both lungs. 4. Pancreatic calcifications. González Peña MD FACR Chest X-Ray 02/01/171913 Signed Impressions: Service Date/Time: January 19:52 - CONCLUSION: No acute disease. González Peña MD FACR Zosyn/Vanoc started. 2L NS transfused. Third L NS transfused. Flagyl added for poss C diff colitis. Calcium, dextrose insulin, Kayexalate and bicarbonate given for hyperkalemia. Hyperkalemia EKG change EKG shows sinus rhythm with a rate of 135 Admission to [facility]. D/w Dr Larson. Critical Care Narrative Aggregate critical care time was 45 minutes. Time to perform other separately billable procedures was not included in the critical care time. My time did not include minutes spent treating any other patients simultaneously or on activities that did not directly contribute to the patient's treatment. The services I provided to this patient were to treat and/or prevent clinically significant deterioration that could result in: MODS, cardiopulmonary arrest, arrhythmia I provided critical care services requiring my management, as noted below: Chart data review, documentation time, medication orders and management, vital sign assessments/reviewing monitor data, ordering and reviewing lab tests, ordering and interpreting/reviewing x-rays and diagnostic studies, care of the patient and discussion of the patient with the admitting physicians. Sepsis Criteria SIRS Criteria (2 or more): Heart rate over 90, RR > 20 or PaCO2 < 32, WBC > 71956, < 4000 or > 10% bands Sepsis Criteria (SIRS+source): Infect source susp/known Severe Sepsis (+one): Lactate >2 Septic Shock Criteria: Lactic acid >=4 Diagnosis Primary Impression: Septic shock Additional Impressions: Colitis Hyperkalemia Acute renal failure Qualified Code: N17.9 - Acute renal failure, unspecified acute renal failure type Admitting Information Admitting Physician Requests: Admit Carl Gay MD February 01, 2017 19:27
[2017-02-01] MEDS ORDERED: PRED5TAB PO (19:40)
[2017-02-01] MEDS ORDERED: FLUO1TAB17 PO (19:40)
[2017-02-01] MEDS ORDERED: LEVA500T PO (19:40)
[2017-02-01] MEDS ORDERED: MEMA1TAB2 PO (19:40)
[2017-02-01 19:47] VITALS: O2SAT 95
[2017-02-01] MEDS: RESP: ALBUTEROL 2.5 MG/IPRATROPIUM 0.5 MG NEB (SCH) INH ×2 (19:47→20:00)
[2017-02-01 19:57] LABS: BLOOD GAS CARBOXYHEMOGLOBIN 0.7 % (0-4); BLOOD GAS HCO3 16 mmol/L (22-26); BLOOD GAS METHEMOGLOBIN 0.4 % (0-2); BLOOD GAS O2 HGB SATURATION 98 % (90-100); BLOOD GAS OXYGEN CONTENT 23.1 Vol % (12.0-20.0); BLOOD GAS PCO2 33 mmHg (38-42); BLOOD GAS PO2 203 mmHG (61-120); BLOOD GAS TOTAL HGB 16.4 G/DL (12.0-16.0); CRITICAL VALUE YES; DRAW SITE RT FEMORAL; FIO2 100 %; LITER FLOW 15 L/M; NUMBER OF ARTERIAL PUNCTURES 1; STAT YES; TEMP CORR TO 98.6
[2017-02-01] MEDS ORDERED: SODIUM CHLOR 0.9% 1000 ML INJ 1,000 ML IV ONE ×3 (20:00→22:45)
[2017-02-01] MEDS ORDERED: PIPERACIL-TAZO 2.25 GM PREMIX 50 ML IV ONE (20:00)
[2017-02-01] MEDS ORDERED: VANCOMYCIN INJ 1,000 MG in SODIUM CHLOR 0.9% 250 ML INJ 250 ML IV ONE (20:00)
[2017-02-01 20:14] LABS: BACTERIA, URINE RARE /hpf; BLOOD, URINE TRACE (NEG); GLUCOSE,URINE NEG (NEG); HYALINE CAST, URINE 26 /lpf (RARE); KETONE, URINE NEG (NEG); MUCUS URINE FEW /lpf (OCC); NITRITE,URINE NEG (NEG); SQUAMOUS EPITHELIAL CELL URINE 1 /hpf (0-5); URINE COLOR YELLOW (YELLW/STRAW)
[2017-02-01 20:15] VITALS: BP 92/55; PULSE 128; RESP 40; O2SAT 94
[2017-02-01 20:15] LABS: COMMENT (UR) CULTURE INDICATED; CULTURE IF INDICATED CULTURE INDICATED
[2017-02-01 20:21] LABS: HEMATOCRIT 55.6 % (35.0-46.0); MEAN CELL VOLUME 90.7 FL (80.0-100.0); MEAN CORPUSCULAR HEMOGLOBIN 29.1 PG (27.0-34.0); MEAN CORPUSCULAR HGB CONC 32.1 % (32.0-36.0); PLATELET COUNT 289 TH/MM3 (150-450); RED BLOOD COUNT 6.13 MIL/MM3 (4.00-5.30); RED CELL DISTRIBUTION WIDTH 16.9 % (11.6-17.2); WHITE BLOOD COUNT 42.1 TH/MM3 (4.0-11.0)
--- NOTE | 2017-02-01 20:24 | RADRPT ---
EXAM DATE/TIME: 02/01/2017 19:52 [facility] COMPARISON: CHEST SINGLE AP, October 05, 2016, 20:23. INDICATIONS : Shortness of breath. MEDICAL HISTORY : Emphysema. Hypertension. Chronic obstructive pulmonary disease. TIA. SURGICAL HISTORY : None. ENCOUNTER: Initial ACUITY: 1 day PAIN SCORE: 0/10 LOCATION: Bilateral chest FINDINGS: A single view of the chest demonstrates the lungs to be symmetrically aerated without evidence of mas s, infiltrate or effusion. The cardiomediastinal contours are unremarkable. Skin fold is noted. Oss eous structures are intact. CONCLUSION: No acute disease. González Peña MD FACR on February 01, 2017 at 20:22 Board Certified Radiologist. This report was verified electronically.
[2017-02-01 20:25] LABS: HEMO FLAGS AUTO DIFF
[2017-02-01 20:36] LABS: ANION GAP 16 MEQ/L (5-15); BICARBONATE 21.7 MEQ/L (21.0-32.0); BLOOD UREA NITROGEN 75 MG/DL (7-18); CHLORIDE 103 MEQ/L (98-107); GLOMERULAR FILTRATION RATE 13 ML/MIN (>89); MAGNESIUM 3.2 MG/DL (1.5-2.5); POTASSIUM 5.9 MEQ/L (3.5-5.1); SODIUM (NA) 141 MEQ/L (136-145)
[2017-02-01] MEDS ORDERED: DEXTROSE 50% IN WATER 50 ML VIAL(D50) IV PUSH ONE (20:45)
[2017-02-01] MEDS ORDERED: SODIUM POLYSTYRENE SULFONATE SUSP 15 GM/60 ML CUP PO ONE (20:45)
[2017-02-01] MEDS ORDERED: CALCIUM GLUCONATE 10% 1 GM/10 ML VIAL SLOW IVP ONE (20:45)
[2017-02-01 20:50] LABS: CREATINE KINASE 28 U/L (26-192)
[2017-02-01 20:57] LABS: BANDS 23 % (0-6); NEUTROPHIL # MANUAL DIFF 23.2 TH/MM3 (1.8-7.7); POLYS (SEG NEUTROPHILS) 32 % (16-70); WBC DIFF SAMPLE 100
[2017-02-01 20:59] LABS: DOHLE BODIES PRESENT (NONE SEEN); PLATELET ESTIMATE SMEAR NORMAL (NORMAL); PLATELET MORPHOLOGY NORMAL (NORMAL); SCAN/DIFF FINAL DIFF MANUAL; TOXIC GRANULATION 1+ (NORMAL); TOXIC VACUOLATION PRESENT (NONE SEEN)
[2017-02-01] MEDS ORDERED: INSULIN HUMAN REGULAR 1,000 UNITS/10 ML VIAL IV PUSH ONE (21:00)
[2017-02-01 21:24] LABS: INDIRECT BILIRUBIN 0.3 MG/DL (0.0-0.8); TOTAL BILIRUBIN ADULT 0.5 MG/DL (0.2-1.0)
[2017-02-01 21:28] VITALS: BP 92/63; PULSE 128; RESP 40; O2SAT 94
--- NOTE | 2017-02-01 22:34 | RADRPT ---
EXAM DATE/TIME: 02/01/2017 22:08 [facility] COMPARISON: No previous studies available for comparison. INDICATIONS : Abdominal pain. ORAL CONTRAST: No oral contrast ingested. RADIATION DOSE: 11.59 CTDIvol (mGy) MEDICAL HISTORY : Hypertension. SURGICAL HISTORY : Tubal ligation. ENCOUNTER: Initial ACUITY: 1 day PAIN SCALE: Non-responsive LOCATION: Abdomen TECHNIQUE: Volumetric scanning of the abdomen and pelvis was performed. Using automated exposure control and adjustment of the mA and/or kV according to patient size, radiation dose was kept as low as reasonably achievable to obtain optimal diagnostic quality images. FINDINGS: Extensive emphysematous changes are seen in both lungs. Minimal parenchymal changes ar e seen in the right base. The liver is free of focal defects. Spleen is unremarkable. Pancreas is poorly seen. There is diffuse bowel wall thickening in the ascending colon suspicious for a colitis. There is no free fluid. Pelvic contents are grossly unremarkable. CONCLUSION: 1. Severely limited exam from lack of oral and intravenous contrast. 2. Bowel wall thickening ascending colon suspicious for a colitis. 3. Marked emphysematous changes in both lungs. 4. Pancreatic calcifications. González Peña MD FACR on February 01, 2017 at 22:28 Board Certified Radiologist. This report was verified electronically.
[2017-02-01] MEDS ORDERED: metroNIDAZOLE 500 MG INJ 100 ML IV ONE (22:45)
--- NOTE | 2017-02-01 23:15 | HHI.HP ---
HPI Service Critical Care Medicine Primary Care Physician Rei Alfredo M.D. Admission Diagnosis Septic Shock (C Diff, UTI) Diagnosis: Travel History International Travel<30 Days: No Contact w/Intl Traveler <30 Da: No Traveled to Known Affected Are: No History of Present Illness 76-year-old lady resident of a jail who is normally conversant and awake and interactive with the staff and patients arrives due to altered mental status tachycardia and tachypnea. She has been coughing throughout the course of the weekend short of breath and was treated with Levaquin. She has history of COPD and 3 relapses of clostridium difficile colitis. Medical records indicate a history of "altered mental status, unspecified." Per EMS reports the patient O2 sat was 87% at the scene. The patient is on oxygen 2 L 24 7 and it was and had been increased to 4 L prior to EMS arrival. They note the heart rate was about 130 on scene. The patient received one breathing treatment. The respiratory rate remained about 40 throughout the transport. No record of fever. Patient is short of breath in the ER and somewhat altered and unable to answer questions in any great detail. She did confirm she was short of breath. Review of Systems ROS Unable to obtain due to altered mental status Past Family Social History Allergies: Coded Allergies: Hydrocodone (Verified Allergy, Unknown, 02/01/17) Penicillin (Verified Allergy, Unknown, 02/01/17) Morphine (Verified Adverse Reaction, Intermediate, Nausea/Vomiting, ) Past Medical History Hypertension Hyperlipidemia TIA DVT COPD Arthritis Past Surgical History Vein stripping Tubal ligation Reported Medications Reported Meds & Active Scripts Active Potassium Chloride Microencaps 20 Meq Tab 20 Meq PO DAILY Duoneb (Ipratropium-Albuterol Neb) 0.5-2.5 Mg/3 Ml Neb 1 Ampule NEB Q12HR NEB Aspirin EC (Aspirin) 81 Mg Tabdr 81 Mg PO DAILY Reported Levaquin (Levofloxacin) 500 Mg Tab 500 Mg PO DAILY Fluoxetine HCl (Fluoxetine HCl (Pmdd)) 20 Mg Tab 20 Mg PO DAILY Memantine 10 Mg Tab 10 Mg PO BID Prednisone 5 Mg Tab 5 Mg PO BID Lasix (Furosemide) 20 Mg Tab 1 Tab PO DAILY Lisinopril 40 Mg Tab 40 Mg PO DAILY Active Ordered Medications Current Medications Medications (Trade) Dose Ordered Sig/Hung Route PRN Reason Start Time Stop Time Status Last Admin Dose Admin Sodium Chloride (NS Flush) 2 ml UNSCH PRN IVF FLUSH AFTER USING IV ACCESS 02/01/17 19:15 Aspirin (Ecotrin Ec) 81 mg DAILY PO 02/02/17 09:00 Fluoxetine HCl 20 mg 20 mg DAILY PO 02/02/17 09:00 Sodium Chloride (NS 1000 ml Inj) 1,000 ml @ 124 mls/hr Q8H4M IV 02/01/17 23:17 02/02/17 00:35 Sodium Chloride (NS Flush) 2 ml UNSCH PRN .XX FLUSH AFTER USING IV ACCESS 02/01/17 23:30 Sodium Chloride (NS Flush) 2 ml BID .XX 02/02/17 09:00 Acetaminophen (Tylenol) 650 mg Q6H PRN PO PAIN 1-10 AND/OR FEVER >101F 02/01/17 23:30 Morphine Sulfate (Morphine Inj) 2 mg Q2H PRN IV PAIN SCALE 6 TO 10 02/01/17 23:30 Ondansetron HCl (Zofran Inj) 4 mg Q6H PRN IV NAUSEA OR VOMITING 02/01/17 23:30 Metoclopramide HCl (Reglan Inj) 5 mg Q6H PRN IV NAUSEA OR VOMITING 02/01/17 23:30 Temazepam (Restoril) 15 mg HS PRN PO INSOMNIA 02/01/17 23:30 Heparin Sodium (Porcine) (Heparin Inj) 5,000 units Q12H SQ 02/02/17 00:00 02/02/17 00:16 Miscellaneous Information 1 Q361D XX 02/01/17 23:30 Chlorhexidine Gluconate (Chlorhexidine 2% Cloth) 3 pack Taper DAILY@04 TOP 02/02/17 04:00 01/29/18 03:59 Chlorhexidine Gluconate (Chlorhexidine 2% Cloth) 3 pack UNSCH PRN TOP HYGIENIC CARE 02/01/17 23:30 Vancomycin HCl 125 mg 125 mg QID PO 02/02/17 09:00 Metronidazole (Flagyl 500 Mg Inj) 100 ml @ 100 mls/hr Q6HR IV 02/02/17 06:00 Family History Noncontributory Social History Positive for remote history of smoking Negative for alcohol and illicit drug Physical Exam Vital Signs Vital Signs Date Time Temp Pulse Resp B/P Pulse Ox O2 Delivery O2 Flow Rate FiO2 5/18/17 21:28 128 40 92/63 94 15 02/01/17 20:15 128 40 92/55 94 Non-Rebreather 15 02/01/17 19:47 95 Non-Rebreather 15.00 100 02/01/17 19:25 94 Non-Rebreather 15 02/01/17 19:14 97.4 128 40 86/65 94 Physical Exam GENERAL: Elderly woman on facemask nonrebreather SKIN: Warm and dry. HEAD: Normocephalic. EYES: No scleral icterus. No injection or drainage. NECK: Supple, trachea midline. No JVD or lymphadenopathy. CARDIOVASCULAR: Regular rate and rhythm without murmurs, gallops, or rubs. RESPIRATORY: Breath sounds equal bilaterally. No accessory muscle use. GASTROINTESTINAL: Abdomen soft, non-tender, nondistended. MUSCULOSKELETAL: No cyanosis, or edema. BACK: Nontender without obvious deformity. No CVA tenderness. EXTREMITIES: No clubbing cyanosis or edema Laboratory Laboratory Tests Test 02/01/17 02/01/17 02/01/17 02/01/17 19:30 19:45 19:48 19:55 White Blood Count 42.1 Red Blood Count 6.13 Hemoglobin 17.9 Hematocrit 55.6 Mean Corpuscular Volume 90.7 Mean Corpuscular Hemoglobin 29.1 Mean Corpuscular Hemoglobin 32.1 Concent Red Cell Distribution Width 16.9 Platelet Count 289 Mean Platelet Volume 9.7 Neutrophils (%) (Auto) Lymphocytes (%) (Auto) Monocytes (%) (Auto) Eosinophils (%) (Auto) Basophils (%) (Auto) Neutrophils # (Auto) Lymphocytes # (Auto) Monocytes # (Auto) Eosinophils # (Auto) Basophils # (Auto) CBC Comment AUTO DIFF Differential Total Cells 100 Counted Neutrophils % (Manual) 32 Band Neutrophils % 23 Lymphocytes % 42 Monocytes % 3 Neutrophils # (Manual) 23.2 Differential Comment FINAL DIFF MANUAL Toxic Granulation 1+ Toxic Vacuolation PRESENT Dohle Bodies PRESENT Platelet Estimate NORMAL Platelet Morphology Comment NORMAL Sodium Level 141 Potassium Level 5.9 Chloride Level 103 Carbon Dioxide Level 21.7 Anion Gap 16 Blood Urea Nitrogen 75 Creatinine 3.53 Estimat Glomerular Filtration 13 Rate Random Glucose 228 Calcium Level 9.4 Magnesium Level 3.2 Total Bilirubin 0.5 Direct Bilirubin 0.2 Indirect Bilirubin 0.3 Aspartate Amino Transf 26 (AST/SGOT) Alanine Aminotransferase 21 (ALT/SGPT) Alkaline Phosphatase 97 Total Creatine Kinase 28 Troponin I LESS THAN 0.02 B-Type Natriuretic Peptide 65 Total Protein 6.5 Albumin 2.5 Lipase 112 Blood Gas Puncture Site RT FEMORAL Blood Gas Patient Temperature 98.6 Blood Gas HCO3 16 Blood Gas Base Excess -9.0 Blood Gas Oxygen Saturation 98 Arterial Blood pH 7.31 Arterial Blood Partial 33 Pressure CO2 Arterial Blood Partial 203 Pressure O2 Arterial Blood Oxygen Content 23.1 Arterial Blood 0.7 Carboxyhemoglobin Arterial Blood Methemoglobin 0.4 Blood Gas Hemoglobin 16.4 Oxygen Delivery Device Non-Rebreathing Mask Blood Gas Liter Flow 15 Blood Gas Inspired Oxygen 100 Urine Color YELLOW Urine Turbidity HAZY Urine pH 5.0 Urine Specific [place] 1.020 Urine Protein 30 Urine Glucose (UA) NEG Urine Ketones NEG Urine Occult Blood TRACE Urine Nitrite NEG Urine Bilirubin NEG Urine Urobilinogen LESS THAN 2.0 Urine Leukocyte Esterase MOD Urine RBC 1 Urine WBC 15 Urine Squamous Epithelial 1 Cells Urine Amorphous Sediment FEW Urine Bacteria RARE Urine Hyaline Casts 26 Urine Mucus FEW Microscopic Urinalysis Comment CULTURE INDICATED Lactic Acid Level 7.8 Test 02/01/17 21:30 Potassium Level 6.0 Date/Time Procedure Status Source Growth 02/01/17 20:00 Aerobic Blood Culture Received Blood Peripheral Pending 02/01/17 20:00 Anaerobic Blood Culture Received Blood Peripheral Pending 02/01/17 19:48 Urine Culture Worksheet Urine Random Urine Pending Result Diagram: 02/01/17 1930 02/01/172129 Assessment and Plan Assessment and Plan Colitis - Severe leukocytosis - Most likely due to clostridium difficile - Recent history of C. difficile colitis 3 - By mouth vancomycin and IV Flagyl - Infectious disease consultation UTI - Aztreonam - Further antibiotics per culture sensitivity and ID Acute kidney failure - Dehydration - CT of the abdomen without signs of renal obstruction - Continue IV hydration and monitor strict I's and O's - Monitor electrolytes and creatinine Hyperkalemia - Due to above - Insulin/glucose/calcium slightly bicarbonate - By mouth Kayexalate - IV hydration COPD - Severe emphysema on CAT scan - No exacerbation - No indication for steroids - DuoNeb scheduled and when necessary DVT GI prophylaxis - Subcutaneous heparin and Pepcid Critical Care: The total critical care time was 35 minutes. Time to perform other separately billable procedures was not included in the critical care time. Yohannes Larson MD February 01, 2017 23:15
[2017-02-01] MEDS ORDERED: SODIUM CHLOR 0.9% 1000 ML INJ 1,000 ML IV SCH (23:17)
[2017-02-01] MEDS ORDERED: RESP: ALBUTEROL 2.5 MG/IPRATROPIUM 0.5 MG NEB (PRN) INH (23:30)
[2017-02-01] MEDS ORDERED: MORPHINE SULFATE 4 MG/ML INJ IV PRN (23:30)
[2017-02-01] MEDS ORDERED: CHLORHEXIDINE GLUCONATE 2 % 1 PACK (2 CLOTHS) TOP PRN (23:30)
[2017-02-01] MEDS ORDERED: TEMAZEPAM 15 MG CAP PO PRN (23:30)
[2017-02-01] MEDS ORDERED: MISCELLANEOUS NURSING INFORMATION XX SCH (23:30)
[2017-02-01] MEDS ORDERED: ACETAMINOPHEN 325 MG TAB PO PRN (23:30)
[2017-02-01] MEDS ORDERED: ONDANSETRON HCL 4 MG/2 ML VIAL IV PRN (23:30)
[2017-02-01] MEDS ORDERED: SODIUM CHLORIDE 0.9% FLUSH 10 ML FLUSH PRN (23:30)
[2017-02-01] MEDS ORDERED: METOCLOPRAMIDE HCL 10 MG/2 ML VIAL IV PRN (23:30)
[2017-02-01 23:40] VITALS: BP 90/57; PULSE 123; RESP 32; O2SAT 98
[2017-02-02] VITALS (11 sets, daily range): BP systolic 90–148; BP diastolic 51–96; PULSE 60–124; RESP 24–35; TEMP 97.9–98; O2SAT 72–100
[2017-02-02] MEDS ORDERED: HEPARIN SODIUM - SQ 10,000 UNITS/ML VIAL SQ SCH
[2017-02-02] MEDS ORDERED: SODIUM CHLOR 0.9% 1000 ML INJ 1,000 ML IV ONE (00:45)
[2017-02-02] MEDS ORDERED: ALBUMIN HUMAN 5% 25 GM/500 ML BOTTLE IV ONE (01:30)
[2017-02-02] MEDS ORDERED: CALCIUM GLUCONATE INJ 2 GM in DEXTROSE 5% IN WATER 100ML INJ 100 ML IV ONE ×2 (03:15)
[2017-02-02] MEDS ORDERED: SODIUM BICARBONATE 8.4% INJ 50 MEQ/50 ML SYR IV PUSH ONE (03:15)
[2017-02-02] MEDS ORDERED: INSULIN HUMAN REGULAR 1,000 UNITS/10 ML VIAL IV PUSH ONE (03:15)
[2017-02-02] MEDS ORDERED: DEXTROSE 50% IN WATER 50 ML SYRINGE IV ONE (03:15)
[2017-02-02 03:20] LABS: HEMATOCRIT 43.8 % (35.0-46.0); MEAN CELL VOLUME 92.1 FL (80.0-100.0); MEAN CORPUSCULAR HEMOGLOBIN 29.1 PG (27.0-34.0); MEAN CORPUSCULAR HGB CONC 31.6 % (32.0-36.0); PLATELET COUNT 155 TH/MM3 (150-450); RED BLOOD COUNT 4.76 MIL/MM3 (4.00-5.30); RED CELL DISTRIBUTION WIDTH 16.9 % (11.6-17.2); WHITE BLOOD COUNT 48.5 TH/MM3 (4.0-11.0)
[2017-02-02 03:21] LABS: HEMO FLAGS AUTO DIFF
[2017-02-02 03:39] LABS: ALKALINE PHOSPHATASE 62 U/L (45-117); ALT (GPT) 61 U/L (10-53); ANION GAP 10 MEQ/L (5-15); AST (GOT) 104 U/L (15-37); BICARBONATE 19.8 MEQ/L (21.0-32.0); BLOOD UREA NITROGEN 72 MG/DL (7-18); CHLORIDE 115 MEQ/L (98-107); GLOMERULAR FILTRATION RATE 15 ML/MIN (>89); POTASSIUM 5.3 MEQ/L (3.5-5.1); SODIUM (NA) 145 MEQ/L (136-145); TOTAL BILIRUBIN ADULT 0.5 MG/DL (0.2-1.0)
[2017-02-02] MEDS ORDERED: CHLORHEXIDINE GLUCONATE 2 % 1 PACK (2 CLOTHS) TOP SCH (04:00)
[2017-02-02] MEDS ORDERED: AZTREONAM INJ 1,000 MG in SODIUM CHLORIDE 0.9% INJ 100 ML IV ONE (04:30)
[2017-02-02 04:35] LABS: BANDS 22 % (0-6); METAMYELOCYTES 4 % (0-1); NEUTROPHIL # MANUAL DIFF 20.4 TH/MM3 (1.8-7.7); POLYS (SEG NEUTROPHILS) 13 % (16-70); PROMYELOCYTES 3 % (0-0); WBC DIFF SAMPLE 100
[2017-02-02 04:36] LABS: PLATELET ESTIMATE SMEAR LOW (NORMAL); PLATELET MORPHOLOGY NORMAL (NORMAL); SCAN/DIFF FINAL DIFF MANUAL
[2017-02-02] MEDS: RESP: ALBUTEROL 2.5 MG/IPRATROPIUM 0.5 MG NEB (SCH) INH ×2 (04:45→08:04)
[2017-02-02] MEDS ORDERED: metroNIDAZOLE 500 MG INJ 100 ML IV SCH (06:00)
[2017-02-02 07:03] LABS: BLOOD GAS BASE EXCESS -12.9 mmol/L (-2-2); BLOOD GAS CARBOXYHEMOGLOBIN 0.4 % (0-4); BLOOD GAS HCO3 14 mmol/L (22-26); BLOOD GAS METHEMOGLOBIN 0.6 % (0-2); BLOOD GAS O2 HGB SATURATION 97 % (90-100); BLOOD GAS PCO2 36 mmHg (38-42); BLOOD GAS PO2 124 mmHg (61-120); BLOOD GAS TOTAL HGB 16.8 G/DL (12.0-16.0); CRITICAL VALUE YES; TEMP CORR TO 98.6
[2017-02-02 07:04] LABS: DRAW SITE RT RADIAL; FIO2 80 %; LITER FLOW 10 L/M; NUMBER OF ARTERIAL PUNCTURES 1; OXYGEN DEVICE PRB; STAT NO; ULNAR PULSE PRESENT
[2017-02-02] MEDS ORDERED: ROCURONIUM INJ 50 MG/5 ML VIAL ONE (08:12)
[2017-02-02] MEDS ORDERED: ETOMIDATE 40 MG/20 ML VIAL ONE (08:12)
--- NOTE | 2017-02-02 08:13 | RADRPT ---
EXAM DATE/TIME: 02/02/2017 07:48 [facility] COMPARISON: CHEST SINGLE AP, February 01, 2017, 19:52. INDICATIONS : Pleural effusion, fluid overload MEDICAL HISTORY : Emphysema. Hypertension. Chronic obstructive pulmonary disease. TIA. Kyphotic SURGICAL HISTORY : ENCOUNTER: Subsequent ACUITY: 2 days PAIN SCORE: Non-responsive. LOCATION: Bilateral chest FINDINGS: The heart is normal in size. There are advanced emphysematous changes throughout both lungs. There is a large emphysematous bleb in the left lung apex. There are chronic appearing interstitial changes o n the right. The lungs are stable compared to previous dated 02/01/70. CONCLUSION: Large emphysematous bleb in the left lung apex. COPD changes which are stable compared to previous ex am. Carl Peña MD on February 02, 2017 at 8:11 Board Certified Radiologist. This report was verified electronically.
[2017-02-02] MEDS ORDERED: SODIUM BICARBONATE 8.4% INJ 50 MEQ/50 ML SYR IV ONE ×2 (08:30→09:00)
[2017-02-02] MEDS ORDERED: PHENYLEPHRINE HCL 10 MG/ML VIAL ONE (08:32)
[2017-02-02] MEDS ORDERED: CALCIUM CHLORIDE 10% SOLN 1 GRAM/10 ML SYR ONE (08:32)
[2017-02-02] MEDS ORDERED: ASPIRIN EC 81 MG TABEC PO SCH (09:00)
[2017-02-02] MEDS ORDERED: FLUoxetine HCL 20 MG CAP PO SCH (09:00)
[2017-02-02] MEDS ORDERED: SODIUM BICARBONATE 8.4% INJ 150 MEQ in DEXTROSE 5% IN WATE 1000ML INJ 1,000 ML IV SCH ×2 (09:00)
[2017-02-02] MEDS ORDERED: VANCOMYCIN 500 MG VIAL (FOR ORAL USE ONLY) PO SCH (09:00)
[2017-02-02] MEDS ORDERED: SODIUM CHLORIDE 0.9% FLUSH 10 ML FLUSH SCH (09:00)
--- NOTE | 2017-02-02 09:12 | PD.PROCEDR ---
Procedure Note Procedure Procedure: Endotracheal intubation Preop diagnosis: Sepsis, encephalopathy, colitis, history of present illness, metabolic acidosis, COPD, acute respiratory failure Postop diagnosis: Same Indication: Agonal respirations, severe metabolic acidosis, encephalopathy with inability to protect airway Sedation used: None as patient was encephalopathic/almost unresponsive. Procedure: Patient was preoxygenated with 100% oxygen via Ambu bag with bag mask ventilation, direct laryngoscopy was performed using a Mac 3 blade with good visualization of vocal cords. A 7.5 [place] ET tube was passed through the vocal cords under direct visualization up to the 23 centimeter salo and after inflating cuff of ET tube, correct placement was confirmed using bagging with good color change on CO2 detector, 5 point auscultation and chest rise with ventilation. Patient was connected to mechanical ventilation. Patient tolerated the procedure well with no immediate complications noted. Postprocedure chest x-ray was pending at the time of this dictation Leonard Varela MD February 02, 2017 09:12
--- NOTE | 2017-02-02 09:31 | PD.PROCEDR ---
Procedure Note Procedure Procedure: CPR Preop diagnosis: Cardiac arrest(PEA followed by asystole Postoperative diagnosis: Same Procedure: Patient had been intubated earlier in while prepping for central line placement she was noted to have an absent pulse with sinus rhythm on the monitor and appeared to be in PEA. CODE BLUE cardiac arrest code was activated and CPR/ACLS protocol initiated. Please see ACLS code sheet for details. Patient remained unresponsive and went into asystole. CPR/ACLS protocol continued. Subsequently patient's daughter called and requested to change her to DNR status and to stop CPR. CPR was stopped and patient was declared on 02/02/2017 at 0843 hrs. Leonard Varela MD February 02, 2017 09:31
[2017-02-02 11:10] LABS: C. DIFF EPI 027 PRESUMPTIVE POSITIVE (NEGATIVE)
[2017-02-02 11:12] LABS: C. DIFF TOXIN PCR POSITIVE (NEGATIVE)
[2017-02-02] MEDS ORDERED: EPINEPHrine HCL (1:10,000) 1 MG/10 ML SYRINGE IV ONE (12:43)
[2017-02-02] MEDS ORDERED: SODIUM BICARBONATE 7.5% INJ 44.6 MEQ/50 ML SYR IV PUSH ONE (12:43)
--- NOTE | 2017-02-02 21:30 | EKG ---
Date Performed: 02/01/2017 Time Performed: 19:33:25 PTAGE: 76 years EKG: SINUS TACHYCARDIA MARKED RIGHT AXIS DEVIATION LOW QRS VOLTAGE IN PRECORDIAL LEADS PATTERN C ONSISTENT WITH PULMONARY DISEASE RIGHT BUNDLE BRANCH BLOCK ABNORMAL ECG PREVIOUS TRACING : 02/01/2017 19.32 Compared to the previous tracing sinus tachycardia is new DOCTOR: Gurjit Malik Interpretating Date/Time 02/05/2017 07:38:19
--- NOTE | 2017-02-03 16:02 | EKG ---
Date Performed: 02/02/2017 Time Performed: 08:12:58 PTAGE: 76 years EKG: Sinus tachycardia with PAC(s). Severe right axis deviation rSr'(V1) - probable normal varia nt Possible inferior infarct - age undetermined Anteroseptal ST changes may be due to myocardial isch emia Generalized low QRS voltages Abnormal ECG PREVIOUS TRACING 02/01/2017 @19.33.25 Compared to prior tracing no significant change DOCTOR: Lesley Menednez Interpretating Date/Time 02/03/2017 16:32:50
== END 2017-02-02 12:44 | disposition expired | DRG 871 ==
LOC: NEPC 18:46 → NEDA 22:43 → N03B 02-02 00:43
PROVIDERS: ADMIT Internal Medicine Critical Care Medicine; ATTEND Internal Medicine Critical Care Medicine
PROC: 0BH17EZ Insertion of Endotracheal Airway into Trachea, Via Natural or Artificial Opening (ICD-10-PCS; principal; 2017-02-02)
PROC: 5A12012 Performance of Cardiac Output, Single, Manual (ICD-10-PCS; 2017-02-02)
PROC: 5A1935Z Respiratory Ventilation, Less than 24 Consecutive Hours (ICD-10-PCS; 2017-02-02)
PROC: 0CJS8ZZ Inspection of Larynx, Via Natural or Artificial Opening Endoscopic (ICD-10-PCS; 2017-02-02)
DX: A41.9 Sepsis, unspecified organism (principal); R65.21 Severe sepsis with septic shock; J96.00 Acute respiratory failure, unspecified whether with hypoxia or hypercapnia; I46.9 Cardiac arrest, cause unspecified; G93.40 Encephalopathy, unspecified; N17.9 Acute kidney failure, unspecified; K86.89 Other specified diseases of pancreas; E87.2 Acidosis; N39.0 Urinary tract infection, site not specified; E86.0 Dehydration; E78.5 Hyperlipidemia, unspecified; I10 Essential (primary) hypertension; J44.9 Chronic obstructive pulmonary disease, unspecified; J45.909 Unspecified asthma, uncomplicated; K52.9 Noninfective gastroenteritis and colitis, unspecified; Z86.19 Personal history of other infectious and parasitic diseases; Z86.73 Personal history of transient ischemic attack (TIA), and cerebral infarction without residual deficits; Z87.891 Personal history of nicotine dependence
CPT/HCPCS: 31500; 36556; 36600; 51702; 71010; 74176; 80048; 80053; 80076; 81001; 82140; 82550; 82805; 82948; 83605; 83690; 83735; 83880; 84132; 84484; 85007; 85027; 87040; 87086; 87493; 87641; 92950; 93005; 94640; 94664; 96361; 96365; 96367; 96374; 96375; J0171; J0610; J1644; J1815; J2370; J2543; J2930; J3370; J7030; J7050; P9045